=== PATIENT | female | born 1935 | race Caucasian/White ===

== ENCOUNTER 2019-03-04 11:09 | Observation (INO) | payer MEDICARE ==
[2019-03-04 12:19] LABS: #Basophils 0.1 thou/uL (0.0-0.2); #Eosinphils 0.2 thou/uL (0.0-0.7); #Monocytes 0.6 thou/uL (0.11-0.59); #Neutrophils 5.8 thou/uL (1.40-6.50); %Basophils 0.8 % (0.0-1.0); %Eosinophils 2.5 % (0.0-10.0); %Lymphocytes 13.3 % (21.0-51.0); %Monocytes 7.8 % (0.0-10.0); %Neutrophils 75.7 % (42.0-75.0); Hemoglobin 10.5 g/dL (12.0-16.0); Mean Corpuscular HGB CONC 31.9 g/dL (32.0-36.0); Mean Corpuscular Hemoglobin 28.6 pg (27.0-31.0); Mean Corpuscular Volume 89.8 fL (78.0-98.0); Mean Platelet Volume 7.8 fL (7.4-10.4); Platelet Count 162 thou/uL (130-400); RBC Distribution Width 14.1 % (11.5-14.5); Red Blood Cell (RBC) Count 3.68 mill/uL (4.20-5.40); White Blood Cell (WBC) Count 7.7 thou/uL (4.8-10.8)
[2019-03-04 12:26] LABS: Anion Gap 13 mmol/L (10-20); BUN (Urea Nitrogen) 23 mg/dL (9.8-20.1); Calc. Creatinine Clearance 0 mL/min (70-130); Calcium 9.2 mg/dL (7.8-10.44); Carbon Dioxide 22 mmol/L (23-31); Chloride 109 mmol/L (98-107); Estimated GFR-MDRD 61; Glucose 121 mg/dL (83-110); Potassium 4.5 mmol/L (3.5-5.1); Sodium 139 mmol/L (136-145)
[2019-03-04 12:49] LABS: CKMB 1.7 ng/mL (0-6.6)
[2019-03-04] MEDS ORDERED: cefTRIAXone\\ROCEPHIN 1 GM VIAL ONE (12:56)
[2019-03-04] MEDS ORDERED: Aspirin Chewable 81 MG TAB ONE (12:59)
[2019-03-04] MEDS ORDERED: Sodium Chloride 0.9% 100 ML ONE (12:59)
--- NOTE | 2019-03-04 13:22 | RAD ---
RADIOGRAPH CHEST 1 VIEW: Date: 03/04/19 Time: 1225 HOURS HISTORY: 83-year-old female with dyspnea. COMPARISON: 03/19/15. FINDINGS: The current study is somewhat limited because of slight underexposure, and body habitus. The left som g base is especially poorly visualized. There are diffusely prominent interstitial markings. In the p rior study, the lungs are overexposed. Therefore, comparison is difficult. No gross consolidation is visualized. The increased attenuation at the left base could be due to technique and overlying soft t issues. No pneumothorax. IMPRESSION: Prominent interstitial markings. Uncertain whether chronic or acute. Slightly favored chronic. JN [] POS: TPC
[2019-03-04 16:00] VITALS: BMI 35.9
[2019-03-04] MEDS ORDERED: Acetaminophen 325 MG TAB PO PRN (16:33)
[2019-03-04] MEDS ORDERED: Nitroglycerin 0.4 MG TAB (25 Tab Bottle) PO PRN (16:33)
[2019-03-04] MEDS ORDERED: Ondansetron ODT 4 MG TAB PO PRN (16:33)
--- NOTE | 2019-03-04 16:44 | PDOC.FPRHP ---
- History of Present Illness Chief Complaint: increased shortness of breath from baseline, dysuria History of Present Illness: Shannan Maldonado is an 83 year old F with a PMH of COPD on 4-5L NC at baseline and hx of colon CA s/p resection who was directly admitted from the [facility] ER after work up showing indeterminant trop of 0.057 and T wave inversions in inferior leads on 12 lead EKG. Patient endorses a 2 day history of dysuria and increased urinary frequency. She also states that she has had increased shortness of breath from her baseline over the last two days as well. She was admitted to [facility] about 3 weeks ago and treated for a respiratory infection. Since being discharged, she has been on 4-5 L NC. She denies any chest pain over the last couple days, denies any diaphoresis, n/v, fever, chills, abdominal or flank pain. She originally went to an urgent care today where the physician was concerned for sepsis (tachycardia and tachypnea, UA suggestive of UTI) so she was sent to the [facility] ER. She was given aspirin and IV rocephin in the [facility] ER. It is unclear if a urine Cx was done at either facilities prior to being sent here. ED Course: In the [facility] ER, she was given 1 g rocephin and aspirin - Allergies/Adverse Reactions Allergies Allergy/AdvReac Type Severity Reaction Status Date / Time No Known Allergies Allergy Unverified 03/04/19 15:48 - Home Medications Medication Instructions Recorded Confirmed Type Aspirin [Ecotrin Low Strength] 81 mg PO DAILY 03/04/19 03/04/19 History Esomeprazole Magnesium [Nexium 20 mg PO DAILY 03/04/19 03/04/19 History 24Hr] Ferrous Sulfate 325 mg PO DAILY 03/04/19 03/04/19 History Fexofenadine HCl [Kat Allergy] 180 mg PO DAILY 03/04/19 03/04/19 History Fluticasone/Salmeterol [Advair 1 inh IH BID 03/04/19 03/04/19 History Diskus 250/50] Ipratropium/Albuterol Sulfate 3 ml NEB TID 03/04/19 03/04/19 History [DuoNeb] Montelukast Sodium [Singulair] 10 mg PO DAILY 03/04/19 03/04/19 History Simvastatin [Zocor] 20 mg PO HS 03/04/19 03/04/19 History Venlafaxine HCl [Venlafaxine HCl 75 mg PO DAILY 03/04/19 03/04/19 History ER] Cefdinir [Omnicef] 300 mg PO BID #6 cap 03/05/19 Rx - History PMHx: COPD on 4-5 L NC at baseline, Hx of Colon CA s/p resection (no chemo or radiation) PSHx: Partial colectomy, hysterectomy, appendectomy, cholecystectomy FHx: hx of CAD Social: hx of tobacco use but quit smoking over 20 years ago, denies alcohol or drug use - Review of Systems General: denies: fever/chills, weight/appetite/sleep changes, night sweats Eyes: denies: eye pain, vision changes ENT: denies: nasal congestion, rhinorrhea Respiratory: reports: shortness of breath, exercise intolerance. denies: cough Cardiovascular: denies: chest pain, palpitation, edema, paroxysmal nocturnal dyspnea, orthopnea Gastrointestinal: denies: nausea, vomiting, diarrhea, constipation, abdominal pain Genitourinary: reports: dysuria, polyuria. denies: incontinence Skin: denies: rashes, lesions Musculoskeletal: denies: pain, tenderness, stiffness, swelling Neurological: denies: numbness, syncope, seizure - Vital signs BP: 146/74 HR: 95 RR: 22 Tmax: 98.2 Pox: 97% on 4 L Wt: 89 kg - Physical Exam Constitutional: NAD, awake, alert and oriented HEENT: normocephalic and atraumatic, PERRLA, EOMI, conjunctiva clear Neck: supple, FROM, no JVD Chest: no-tender to palpation Heart: RRR, normal S1/S2, no murmurs/rubs/gallops Lungs: CTAB, no respiratory distress, good air movement, no rales/rhonchi -Lungs: mild exp wheezing Abdomen: soft, non-tender, bowel sounds present Musculoskeletal: normal structure, normal tone, ROM grossly normal Neurological: no focal deficit, CN II-XII intact, normal sensation Skin: no rash/lesions, capillary refill <2 seconds Heme/Lymphatic: no unusual bruising or bleeding Psychiatric: normal mood and affect, good judgment and insight, intact recent and remote memory FMR H&P: Results - Labs Result Diagrams: 03/05/19 06:59 03/05/19 15:04 Lab results: WBC 7.7 thou/uL (4.8-10.8) 03/04/19 12:10 Hgb 10.5 g/dL (12.0-16.0) L 03/04/19 12:10 Hct 33.0 % (36.0-47.0) L 03/04/19 12:10 MCV 89.8 fL (78.0-98.0) 03/04/19 12:10 Plt Count 162 thou/uL (130-400) 03/04/19 12:10 Neutrophils % 75.7 % (42.0-75.0) H 03/04/19 12:10 Sodium 139 mmol/L (136-145) 03/04/19 12:10 Potassium 4.5 mmol/L (3.5-5.1) 03/04/19 12:10 Chloride 109 mmol/L (98-107) H 03/04/19 12:10 Carbon Dioxide 22 mmol/L (23-31) L 03/04/19 12:10 BUN 23 mg/dL (9.8-20.1) H 03/04/19 12:10 Creatinine 0.88 mg/dL (0.6-1.1) 03/04/19 12:10 Glucose 121 mg/dL (83-110) H 03/04/19 12:10 Lactic Acid 1.4 mmol/L (0.5-2.2) 03/04/19 12:10 Calcium 9.2 mg/dL (7.8-10.44) 03/04/19 12:10 CK-MB (CK-2) 1.7 ng/mL (0-6.6) 03/04/19 12:10 - EKG Interpretation EKG: EKG from [facility] read as Premature Atrial Contraction, Rate 93, T wave inversions in II, III, and aVF, Left [place] Deviation - Radiology Interpretation Chest x-ray Status: image reviewed by me, report reviewed by me (negative for acute process) FMR H&P: A/P - Problem List (1) Dyspnea Status: Acute Code(s): R06.00 - DYSPNEA, UNSPECIFIED (2) Ruled out for myocardial infarction Status: Acute Code(s): Z03.89 - ENCNTR FOR OBS FOR OTH SUSPECTED DISEASES AND COND RULED OUT (3) UTI (urinary tract infection) Status: Acute (4) COPD (chronic obstructive pulmonary disease) Status: Chronic - Plan PCP: Thomas 1) SPARKS r/o ACS - increased work of breathing, EKG showing T wave inversions in II, III, aVF, indeterminant trop 0.057 - HEART score of 6 - trend cardiac enzymes - stress test in the AM - tele/obs, cont cardiac monitoring - continue aspirin and statin - nitro prn - hx of neg stress tests in the past but no documented stress test in [facility]itech 2) UTI - concern for sepsis at outside facility due to tachycardia and tachypnea - vitals are stable, patient not tachycardic and has not received IVFs - UA done at outside facility concerning for UTI and pt has had dysuria and increased urinary freq - do not have access to UA results and unsure if culture was ordered at outside facility - continue treatment for UTI with rocephin, will likely transition to po tomorrow - urine cx ordered 3) COPD - continue home regimen - currently at baseline respiratory status, baseline is 4-5 L NC - duonebs prn CODE STATUS: DNI (pt wants compressions and meds, does not wish to be intubated) VTE PPx: Lovenox Diet: HH, NPO @ midnight Dispo: r/o ACS with trops and stress in AM, anticipate d/c home in less than two midnights FMR H&P: Upper Level - Plan Date/Time: 03/04/19 [id number] I, [], have evaluated this patient and agree with findings/plan as outlined by software intern resident. Pertinent changes/additions are listed here. Addendum - Attending - Attending Attestation Date/Time: 03/05/191922 I personally evaluated the patient and discussed the management with Dr. Logan yesterday evening. I agree with the History, Examination, Assessment and Plan documented above with any addition or exceptions noted below. Dr Alonso Conway is her outpatient design coordinator, and Dr. Martinez is her outpatient roller repairer.
[2019-03-04 16:48] LABS: Troponin I 0.061 ng/mL (< 0.028)
[2019-03-04] MEDS ORDERED: Atorvastatin Calcium 10 MG TAB PO SCH (21:00)
[2019-03-04 21:10] LABS: Troponin I 0.042 ng/mL (< 0.028)
--- NOTE | 2019-03-05 06:04 | PDOC.FM ---
- Subjective Subjective: Patient's main complaint is getting up all night to urinate. Burning sensation when urinating, but no pain. Otherwise, she is doing well this morning. VSS. 98 % sat on 4L O2 NC (baseline). Usually has humidifier w/ O2 because without it she reports nosebleeds. Feels sleepy. Reports no trouble breathing or chest pain today. No leg pain, abd pain. 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 She reports she sometimes gets swelling in her legs. Denies previous MIs/ history of heart problems. - Objective MAR Reviewed: Yes Vital Signs & Weight: Vital Signs (12 hours) Temp Pulse Resp BP Pulse Ox 03/05/19 04:55 98.2 F 88 20 127/63 98 03/05/19 04:29 94 L 03/04/19 19:19 97.8 F 78 24 H 122/59 L 94 L Weight Weight 88.269 kg I&O: 03/03/19 03/04/19 03/05/19 06:59 06:59 06:59 Intake Total 890 Output Total 2000 Balance -1110 Result Diagrams: 03/05/19 06:59 03/04/19 12:10 EKG Reviewed by me: Yes (T-wave inversion II, III, AVF) Radiology Reviewed by me: Yes (CXR: prominent interstitial markings, chronic favored over acute) Phys Exam - Physical Examination Constitutional: NAD HEENT: moist MMs, sclera anicteric Respiratory: no wheezing, clear to auscultation bilateral (upper airway sounds heard throughout the chest. Patient seems somewhat dyspneic with mild increased work of breathing) Cardiovascular: RRR (2/6 systolic murmur heard best over upper RSB) Musculoskeletal: no edema, pulses present Neurological: non-focal Psychiatric: normal affect, A&O x 3 Dx/Plan (1) Dyspnea Code(s): R06.00 - DYSPNEA, UNSPECIFIED Status: Acute (2) Ruled out for myocardial infarction Code(s): Z03.89 - ENCNTR FOR OBS FOR OTH SUSPECTED DISEASES AND COND RULED OUT Status: Acute (3) UTI (urinary tract infection) Status: Acute (4) COPD (chronic obstructive pulmonary disease) Status: Chronic - Plan Plan: 83-yo F w/ PMHx of COPD and colon cancer s/p resection, admitted for: 1. Dyspnea on exertion, ACS r/o - EKG: T wave inversions in II, III, aVF - HEART score = 6 - Troponins indeterminate x3 (0.057--> 0.061--> 0.042) - Stress test this morning - On telemetry - Continue aspirin and statin, nitro prn after stress test 2. UTI - Concern for sepsis at outside facility due to tachycardia and tachypnea. - VSS here. No IVFs given. - UA done at outside facility concerning for UTI. Per report, + nitrites - continue treatment for UTI: transition to PO cefdinir 300 mg PO BID for 3-7 days - Urine culture: pending 3. COPD - Continue home regimen - Baseline = 4-5 L NC - Duonebs prn VTE PPx: Lovenox Diet: HH, NPO @ midnight Addendum - Attending - Attending Attestation Date/Time: 03/05/19 1312 I personally evaluated the patient and discussed the management with Dr. Kirby. I agree with the History, Examination, Assessment and Plan documented above with any addition or exceptions noted below. The patient is getting a stress test today. If this is negative, she will likely be d/c on oral antibiotics for uti.
[2019-03-05 07:23] LABS: Hemoglobin 11.8 g/dL (12.0-16.0); Mean Corpuscular HGB CONC 32.4 g/dL (32.0-36.0); Mean Corpuscular Hemoglobin 28.8 pg (27.0-31.0); Mean Corpuscular Volume 88.9 fL (78.0-98.0); Red Blood Cell (RBC) Count 4.09 mill/uL (4.20-5.40); White Blood Cell (WBC) Count 7.5 thou/uL (4.8-10.8)
[2019-03-05 07:56] LABS: Burr Cells SLIGHT = 2-5 cells (100X) (0-1/hpf); Eosinophils 4 % (0-10); Lymphocytes 17 % (21-51); MDiff Complete? YES; Mean Platelet Volume 10.6 fL (7.4-10.4); Monocytes 6 % (0-10); Neutrophil 73 % (42-75); Platelet Count 235 thou/uL (130-400); Platelet Morphology Comment Appears Adequate; Polychromasia SLIGHT = 2-3 cells (100X) (0-2/hpf)
[2019-03-05] MEDS ORDERED: Enoxaparin Sodium 40 MG/0.4 ML SYRINGE SC SCH (09:00)
[2019-03-05] MEDS ORDERED: Aspirin 81 mg Enteric Coated Tablet PO SCH (09:00)
[2019-03-05] MEDS ORDERED: Montelukast Sodium 10 mg Tablet PO SCH (09:00)
[2019-03-05] MEDS ORDERED: Loratadine 10 MG TAB PO SCH (09:00)
[2019-03-05] MEDS ORDERED: Venlafaxine HCl XR 75 MG CAP PO SCH (09:00)
[2019-03-05] MEDS ORDERED: Ferrous Sulfate 325 MG TAB PO SCH (09:00)
[2019-03-05] MEDS ORDERED: Aspirin 325 mg Enteric Coated Tablet PO SCH (09:00)
[2019-03-05] MEDS ORDERED: Regadenoson 0.4 MG/5 ML SYRINGE ONE (10:17)
--- NOTE | 2019-03-05 14:17 | NM ---
CARDIAC SPECT: CLINICAL HISTORY: 83-year-old female with chest pain, dyspnea, and COPD. TECHNIQUE: A myocardial perfusion scan was performed using the single isotope one day protocol with technetium-9 9m sestamibi. 10 mCi were injected intravenously for the rest exam followed by 30 mCi for the stress exam. Pharmacologic stress with Lexiscan was monitored and interpreted by Padilla Grover NP. FINDINGS: There is a fixed defect in the inferior wall. No reversible defects are seen. GATED SPECT LVEF: 46%. WALL MOTION EXAM: Inferior wall hypokinesis. IMPRESSION: 1. Inferior wall scar. 2. No evidence of reversible ischemia. POS: NEW
[2019-03-05 15:34] VITALS: BP 134/63; TEMP 97.8
[2019-03-05 19:13] LABS: Chloride 106 mmol/L (98-107); Potassium 4.2 mmol/L (3.5-5.1); Sodium 137 mmol/L (136-145)
[2019-03-05 19:14] LABS: Calcium 9.5 mg/dL (7.8-10.44); Glucose 104 mg/dL (83-110)
[2019-03-05 19:16] LABS: Anion Gap 13 mmol/L (10-20); Carbon Dioxide 22 mmol/L (23-31)
[2019-03-05 19:18] LABS: BUN (Urea Nitrogen) 19 mg/dL (9.8-20.1); Calc. Creatinine Clearance 70 mL/min (70-130); Estimated GFR-MDRD 65
[2019-03-05] MEDS ORDERED: Cefdinir 300 MG CAP PO SCH (21:00)
--- NOTE | 2019-03-07 15:11 | DIS ---
DATE OF ADMISSION: 03/04/2019 DATE OF DISCHARGE: 03/05/2019 ADMITTING & DISCHARGE ATTENDING: Dr. Monet RESIDENT: Bee Pelaez MD CONSULTS: None. PROCEDURES: Chest x-ray, EKG, and cardiac stress test. PRIMARY DIAGNOSES: 1. Rule out for myocardial infarction 2/2 dyspnea on exertion. 2. Urinary tract infection. SECONDARY DIAGNOSES: 1. Chronic obstructive pulmonary disease. DISCHARGE MEDICATIONS: Cefdinir 300 mg p.o. b.i.d. Discontinued medications: None. HISTORY OF PRESENT ILLNESS AND HOSPITAL COURSE: Ms. Maldonado is an 83-year-old female with a past medical history of COPD and is on 4 to 5 L of oxygen via nasal cannula at baseline. Of note, she has a history of colon cancer, status post resection. She was admitted today from the [facility] Emergency Room after a workup showed indeterminate troponins and T-wave inversions on inferior leads on a 12-lead EKG. The patient initially presented for symptoms of dysuria and increased urinary frequency. However, she has also had increased shortness of breath especially with exertion. With regards to her dyspnea, the patient was admitted to [facility] about 3 weeks prior to this hospitalization and was treated for a respiratory infection. She had denied any chest pain over the last few days and did not claim to have diaphoresis, nausea, vomiting, fevers, or chills. At our facility, a standard rule out for MS was begun. Her chest x-ray showed prominent interstitial markings, but it was uncertain whether these were chronic or acute. Her nuclear stress test revealed left ventricular ejection fraction of 46%. It also showed an inferior wall scar. However, there was no evidence of reversible ischemia. With regards to her urinary symptoms, a urine culture was not obtained at the outside emergency room. She was given 1 g of Rocephin before being transferred to our facility. The patient was prescribed oral antibiotics for her UTI after urine culture at our facility showed less than 10,000 colony units of E coli. The patient was stable the day following admission and felt like she was back to normal. She was discharged with oral antibiotics. DISPOSITION: Stable. DISCHARGE INSTRUCTIONS: 1. Location: Home. 2. Diet: Heart healthy. 3. Activity: As tolerated. 4. Followup: Follow up with Dr. Guzman, PCP, within 1 week. Bee Pelaez MD PGY-1 Job ID: [id number] LINDA
== END 2019-03-05 17:19 | disposition home or self-care (01) ==
LOC: SCSER 11:09 → 2SW 15:34
PROVIDERS: ADMIT Family Medicine; ATTEND Family Medicine
DX: R06.00 Dyspnea, unspecified (principal); N39.0 Urinary tract infection, site not specified; J44.9 Chronic obstructive pulmonary disease, unspecified; Z85.038 Personal history of other malignant neoplasm of large intestine; Z87.891 Personal history of nicotine dependence; Z99.81 Dependence on supplemental oxygen; Z79.82 Long term (current) use of aspirin; Z79.51 Long term (current) use of inhaled steroids; Z79.899 Other long term (current) drug therapy
CPT/HCPCS: 71045; 78452; 80048 ×2; 82553; 83605; 83735; 84443; 84484 ×2; 85007; 85025; 85027; 87086; 93005; 93017; 94640 ×2; 94760; 96365; 96372; 97139; 99285; A9500; G0378 ×2; 36415; 93010; J0696; J1650; J2785; J3490; J7620

== ENCOUNTER 2020-08-15 19:30 | Inpatient (IN) | payer MEDICARE ==
--- NOTE | 2020-08-15 20:29 | PDOC.FPRHP ---
- History of Present Illness Chief Complaint: SOB History of Present Illness: Pt is an 85yo female with hx of COPD, colon cancer in remission, CAD s/p stent who presents with worsening SOB. Pt is on 4L oxygen at baseline. For the past week she has had increasing SOB and SPARKS. She was not able to complete ADLs due to SPARKS. She had to increase her home oxygen to 6L. Per EMS her O2sat was 85% at home. She was transferred to our hospital from an outside ED. At outside ED found to have elevated D dimer. CTA chest was negative for PE but showed large L pleural effusion and possible PNA, along with nodule in RLL suspicious for malignancy. Also found to have hemoglobin of 6.4 and given 1u pRBC. Admits some associated dizziness. Denies CP, palpitations, fever, N/V/D, hematemesis, hematuria. Positive for melena ED Course: rocephin, albuterol, azithromycin, 1u pRBC - Allergies/Adverse Reactions Allergies Allergy/AdvReac Type Severity Reaction Status Date / Time No Known Allergies Allergy Verified 05/01/20 02:40 - Home Medications Medication Instructions Recorded Confirmed Type Aspirin [Ecotrin Low Strength] 81 mg PO DAILY 03/04/19 08/16/20 History Esomeprazole Magnesium [Nexium 20 mg PO DAILY 03/04/19 08/16/20 History 24Hr] Ferrous Sulfate 325 mg PO DAILY 03/04/19 08/16/20 History Fexofenadine HCl [Kat Allergy] 180 mg PO DAILY 03/04/19 08/16/20 History Fluticasone/Salmeterol [Advair 1 inh IH BID 03/04/19 08/16/20 History Diskus 250/50] Ipratropium/Albuterol Sulfate 3 ml NEB TID 03/04/19 08/16/20 History [DuoNeb] Montelukast Sodium [Singulair] 10 mg PO DAILY 03/04/19 08/16/20 History Simvastatin [Zocor] 20 mg PO HS 03/04/19 08/16/20 History Venlafaxine HCl [Venlafaxine HCl 75 mg PO DAILY 03/04/19 08/16/20 History ER] Carvedilol [Coreg] 3.125 mg PO BID-WM 30 Days #60 tab 02/01/20 08/16/20 Rx Furosemide [Lasix] 40 mg PO BID #60 tablet 05/03/20 08/16/20 Rx Ticagrelor [Brilinta] 90 mg PO BID #60 tab 05/03/20 08/16/20 Rx predniSONE 20 mg PO QAM-WM #7 tab 05/03/20 08/16/20 Rx - History PMHx: COPD, colon cancer in remission, CAD PSHx: pacemaker, cardiac stent, colectomy, appendectomy, cholecystectomy FHx: non-contributory Social: former smoker, rare alcohol use, denies drug use. Lives at home alone - Review of Systems General: denies: fever/chills, weight/appetite/sleep changes Eyes: denies: vision changes ENT: denies: nasal congestion, rhinorrhea Respiratory: reports: cough (chronic), shortness of breath. denies: congestion Cardiovascular: denies: chest pain, palpitation Gastrointestinal: denies: nausea, vomiting, diarrhea Genitourinary: denies: dysuria Skin: denies: rashes Musculoskeletal: denies: pain Neurological: reports: other (dizziness) - Vital signs BP:131/67, HR 80. RR 25, O2 sat 95% on 4L, Tmax 98F, Wt 90 kg - Physical Exam Constitutional: awake, alert and oriented -Constitutional: had to take frequent breaks during conversation to catch her breath HEENT: normocephalic and atraumatic, grossly normal vision, grossly normal hearing Neck: supple Heart: RRR, pulses present -Heart: distant heart sounds Lungs: no wheezing -Lungs: decreased breath sounds at L lung base Abdomen: soft, non-tender -Abdomen: hernia present- reducible Musculoskeletal: normal structure, normal tone Neurological: no focal deficit Skin: no rash/lesions Heme/Lymphatic: no unusual bruising or bleeding Psychiatric: normal mood and affect, intact recent and remote memory FMR H&P: Results - Labs Result Diagrams: 08/16/20 05:22 08/16/20 05:22 FMR H&P: A/P - Plan Pt is an 85yo female with hx of COPD who presents with worsening SOB. #Symptomatic anemia -Hb 6.4 at outside ED, given 1u pRBC, Hb increased to 8.6 -hx of MAYITO on oral iron replacement -etiology possible GI bleed vs anemia of chronic disease 2/2 malignancy -Will recheck CBC and transfuse as needed with goal Hb>8 -FOBT not performed as pt on iron -Consider GI consult in AM #Left pleural effusion -CTA: No PE, large left pleural effusion, RLL nodule suspicious for malignancy -consider thoracentesis in am for further evaluation -s/p rocephin & azithromycin in ED, pending procal #Acute on chronic respiratory failure likely 2/2 large pleural effusion -EMS reported O2 85% on home oxygen, increased to 6L -currently satting 95% on 4L which is home regimen -thoracentesis as above #Leukocytosis -WBC 18.0, no bands, no fever -Suspect reactive, clinically monitor, repeat in AM -s/p rocephin & azithro, will obtain procal #CKD3 -near baseline, monitor in AM #CAD s/p stents -continue home meds Code: DNI PCP: Adan DVT ppx: held due to possible bleed GI ppx: protonix IV Dispo: Admit to inpatient medical, possible thoracentesis in am, LOS > 48hrs FMR H&P: Upper Level - Plan Date/Time: 08/15/202028 I, [Heide Watson], have evaluated this patient and agree with findings/plan as outlined by international freight forwarder resident. Pertinent changes/additions are listed here. Ms. Talbert is an 85 yo F with chronic respiratory failure on 4L N.C. from COPD who presents as transfer for worsening SOB. Has been happening this past week and has required intermittent inc of her home O2 to 6L. She is a former smoker, quit 20 years ago. In the ER she was found to be anemic with Hb 6.4, given 1 PRBC. Ddimer was elevated w/ CTA negative for PE but showing large left pleural effusion with RLL nodule and mediastinal adenopathy. Of note she has a remote history of colon CA with resection in which she states she is in remission. She also endorses dark, tarry stool that she has had since being on iron. No other bleeding elsewhere. No prior hx of GIB. She states feeling a little un comfortable from being SOB but denies chest pain, irregular heart beat. #Symptomatic anemia -2/2 GIB vs. anemia of chronic disease (malignancy?) -s/p 1PRBC, will recheck H/H, goal >8 due to cardiac hx -H/H improved from 6.4 to 8.6 on recheck -Will repeat in 4 hours, clinically monitor for signs of GIB, empirically start IV protonix BID. FOBT not performed as pt on iron. -Consider GI consult in AM, Repeat CBC with AM labs #Left pleural effusion -CTA: No PE, large left pleural effusion with mediastinal adenopathy, 1cm RLL pulmonary nodule -Plan for AM diagnostic and therapeutic thoracentesis to further w/u -s/p rocephin & azithromycin, low suspicion for bacterial cause but will obtian procal #Hypoxic episode -88% in outside ER, no patient on 95% on 4L (baseline O2) -ABG wnl -Dyspneic episodes at home likely from anemia vs. pleural effusion #Leukocytosis -WBC 18.0, no bands, no fever -Suspect reactive, clinically monitor, repeat in AM -s/p rocephin & azithro, will obtain procal #Chronic respiratory failure 2/2 COPD -requiring 4L at baseline -Continue home meds for COPD -Goal O2 88-92% #CKD3 -near baseline, monitor in AM #SD s/p stent -Stable, monitor #CAD -MD aware #Hx of PM -MD aware dvt ppx: hold gi ppx: IV protonix code: DNI pcp: Dr. Montanez Addendum - Attending - Attending Attestation Date/Time: 08/16/20 0121 I personally evaluated the patient and discussed the management with Dr. Angela on 08/15/2020 I agree with the History, Examination, Assessment and Plan documented above with any addition or exceptions noted below- 85yo female with hx of COPD, colon cancer in remission, CAD s/p stent, h/o aortic stenosis s/p TAVR who presents with worsening SOB. Pt is on 4L oxygen at baseline. For the past week she has had increasing SOB and SPARKS. She was not able to complete ADLs due to SPARKS. She had to increase her home oxygen to 6L.Per EMS her O2sat was 85% at home. She was transferred to our hospital from an outside ED. Admits some associated dizziness. Denies CP, palpitations, fever, N/V/D, hematemesis, hematuria. Positive for melena. PMH/PSH/Meds/SH reviewed and agree with resident's documentation. Afebrile BP 131/67 P80 95% on 4L Exam repeated by me and agree with resident's findings. Labs: WBC= 15.6 ->18.0, H/H=6.4/21.6->8.6/26.7, Xp=391, K=4.0, Hf=781, CO2=26, BUN/Cr=40/1.08, Uwtl=735, lactic acid=2.3->1.1, EKO=926, CTA- large left pleural effusion; mediastinal LAD, 1 cm RLL nodule suspicious for malignancy. A/P: 1) Acute hypoxic resp failure secondary to large pleural effusion- O2 sats currently stable; continue oxygen and continue monitoring, 2) Large pleural effusion - will plan on thoracentesis in AM and fluid studies. 3) Pulmonary nodule- consider pulmonary consult.
[2020-08-15 21:04] LABS: #Eosinphils 0.1 thou/uL (0.0-0.7); #Lymphocytes 0.9 thou/uL (1.20-3.40); #Monocytes 1.6 thou/uL (0.11-0.59); #Neutrophils 15.5 thou/uL (1.40-6.50); %Eosinophils 0.4 % (0.0-10.0); %Monocytes 8.6 % (0.0-10.0); Hemoglobin 8.6 g/dL (12.0-16.0); Mean Corpuscular HGB CONC 32.2 g/dL (32.0-36.0); Mean Corpuscular Hemoglobin 29.6 pg (27.0-31.0); Mean Corpuscular Volume 91.8 fL (78.0-98.0); Mean Platelet Volume 8.6 fL (7.4-10.4); Platelet Count 286 thou/uL (130-400); Red Blood Cell (RBC) Count 2.91 mill/uL (4.20-5.40)
[2020-08-15] MEDS ORDERED: Ondansetron PF 4 MG/2 ML Vial IVP PRN (22:11)
[2020-08-15] MEDS ORDERED: Ondansetron ODT 4 MG TAB PO PRN (22:11)
[2020-08-15] MEDS ORDERED: Sodium Chloride 0.9% (PF) 10 ML VIAL FS PRN (22:30)
[2020-08-15] MEDS ORDERED: Pantoprazole 40 MG VIAL IVP SCH (22:30)
[2020-08-16 01:32] LABS: Hemoglobin 8.1 g/dL (12.0-16.0)
[2020-08-16 04:46] VITALS: BMI 31.1
[2020-08-16 05:44] LABS: #Eosinphils 0.1 thou/uL (0.0-0.7); #Lymphocytes 0.8 thou/uL (1.20-3.40); #Monocytes 1.5 thou/uL (0.11-0.59); #Neutrophils 12.3 thou/uL (1.40-6.50); %Basophils 0.1 % (0.0-1.0); %Eosinophils 0.5 % (0.0-10.0); %Lymphocytes 5.7 % (21.0-51.0); %Monocytes 9.9 % (0.0-10.0); %Neutrophils 83.8 % (42.0-75.0); Mean Corpuscular HGB CONC 32.2 g/dL (32.0-36.0); Mean Corpuscular Hemoglobin 29.4 pg (27.0-31.0); Mean Corpuscular Volume 91.4 fL (78.0-98.0); Mean Platelet Volume 8.7 fL (7.4-10.4); Platelet Count 275 thou/uL (130-400); Red Blood Cell (RBC) Count 2.72 mill/uL (4.20-5.40); White Blood Cell (WBC) Count 14.7 thou/uL (4.8-10.8)
[2020-08-16 06:07] LABS: Anion Gap 14 mmol/L (10-20); BUN (Urea Nitrogen) 35 mg/dL (9.8-20.1); Calc. Creatinine Clearance 49 mL/min (70-130); Calcium 8.8 mg/dL (7.8-10.44); Carbon Dioxide 26 mmol/L (23-31); Chloride 104 mmol/L (98-107); Glucose 137 mg/dL (83-110); Potassium 4.1 mmol/L (3.5-5.1); Sodium 140 mmol/L (136-145)
--- NOTE | 2020-08-16 06:16 | PDOC.FM ---
- Subjective Subjective: Patient reports difficulty breathing today. Denies CP, N/V. Colon cancer dx and tx was >10 yrs ago per patient. - Objective MAR Reviewed: Yes Vital Signs & Weight: Vital Signs (12 hours) Temp Pulse Resp BP Pulse Ox 08/16/20 04:29 98.2 F 86 16 155/51 H 92 L 08/16/20 00:04 97.8 F 84 16 153/67 H 95 08/15/20 23:15 97.7 F 82 24 H 150/53 H 93 L Weight Weight 77.1 kg Result Diagrams: 08/16/20 05:22 08/16/20 05:22 Phys Exam - Physical Examination Constitutional: NAD Respiratory: no wheezing, no rales, no rhonchi Decreased breath sounds on LLL Cardiovascular: RRR, no significant murmur, no rub Gastrointestinal: soft, non-tender, no distention, positive bowel sounds Musculoskeletal: no edema, pulses present Dx/Plan - Plan Plan: Pt is an 85yo female with hx of COPD who presents with worsening SOB. Symptomatic anemia - Hb 6.4 at outside ED, given 1u pRBC, Hb increased to 8.6 - hx of MAYITO on oral iron replacement - etiology possible GI bleed vs anemia of chronic disease 2/2 malignancy - Will recheck CBC and transfuse as needed with goal Hb>8 - FOBT not performed as pt on iron - Consider GI consult if worsening anemia Left pleural effusion - CTA: No PE, large left pleural effusion, RLL nodule suspicious for malignancy - consider thoracentesis in am for further evaluation - s/p rocephin & azithromycin in ED, procal negative - Plan for thoracentesis with fluid studies Acute on chronic respiratory failure 2/2 COPD - EMS reported O2 85% on home oxygen, increased to 6L - currently satting well on 5L O2 with increased air hunger Leukocytosis - WBC 18.0, no bands, no fever - Suspect reactive, clinically monitor, repeat in AM - s/p rocephin & azithro, will obtain procal CKD3 - near baseline, monitor in AM CAD s/p stents - Hold anticoagulants this AM given concern for possible GI bleed Code: DNI PCP: Thomas/Tarik DVT ppx: held due to possible bleed GI ppx: protonix IV Dispo: Admit to inpatient medical, possible thoracentesis in am, LOS > 48hrs Addendum - Attending - Attending Attestation Date/Time: 08/16/20 1596 I personally evaluated the patient and discussed the management with Dr. Adhikari I agree with the History, Examination, Assessment and Plan documented above with any addition or exceptions noted below. 85 yo female admitted for acute hypoxic respiratory failure due to severe Left plueral effusion with hx of underlying colon cancer Patient in distress this morning. Continue to up titrate O2 support. IR consulted for dx and therapeutic thorocentesis. No need for antibx at this time. No s/sx of infection. Continue to monitor. Will involve other specialist as indicated. [place]
[2020-08-16] MEDS: Acetaminophen 325 MG TAB PO PRN ×4 (06:20→21:51)
[2020-08-16] MEDS: Pantoprazole 40 MG VIAL IVP SCH ×2 (09:12→20:44)
[2020-08-16] MEDS: Ferrous Sulfate 325 MG TAB PO SCH (09:13)
[2020-08-16] MEDS: Furosemide 40 MG TAB PO SCH ×2 (09:13→20:44)
[2020-08-16] MEDS: Loratadine 10 MG TAB PO SCH (09:13)
[2020-08-16] MEDS ORDERED: Carvedilol 3.125 MG TAB PO SCH (09:15)
[2020-08-16] MEDS ORDERED: predniSONE 20 MG TAB PO SCH (09:15)
[2020-08-16 12:11] LABS: INR-International Normal Ratio 1.3; PTT 33.7 sec (22.9-36.1)
--- NOTE | 2020-08-16 12:17 | PQF ---
CLINICAL DOCUMENTATION CLARIFICATION FORM: Dear Dr. WAYNE EID Date: 08-16-19 Please exercise your independent, professional judgment in responding to the clarification form. Clinical indicators are provided on the bottom of this form for your review. Please check appropriate box(es) to clarify if the following diagnosis has been ruled in our ruled out: PNEUMONIA [ ] Ruled in diagnosis [ ] Continue to treat [ ] Resolved [ X ] Ruled out diagnosis [ ] Other diagnosis [ ] Unable to determine In addition, please specify: Present on Admission (POA): [ ] Yes [ X ] No [ ] Unable to determine For continuity of documentation, please document condition throughout progress notes and discharge summary. Thank You. To be completed by CDI/Coding staff for physician review: CLINICAL INDICATORS - SIGNS / SYMPTOMS / LABS / RESULTS AND LOCATION IN MR: ER DX 08-15-20: DYSPNEA, ANEMIA, HYPOXIA, PLEURAL EFFUSION, PNEUMONIA H&P: 08-15-20: CTA CHEST WAS NEGATIVE FOR PE BUT SHOWED LARGE L PLEURAL EFFUSION AND POSSIBLE PNEUMONIA, ALONG WITH NODULE IN RLL SUSPICIOUS FOR MALIGNANCY. H&P 08-15-20: SYMPTOMATIC ANEMIA, L PLEURAL EFFUSION, ACUTE ON CHRONIC RESPIRATORY FAILURE LIKELY 2/2 LARGE PLEURAL EFFUSION, LEUKOCYTOSIS, CKD3, CAD WBC: 08-15-20: 18.0, 08-16-20: 14.7 NEUTROPHILS: 08-15-20: 86% 08-16-20: 83.8% RISK FACTORS / RESULTS AND LOCATION IN MR: H&P 08-15-20: SYMPTOMATIC ANEMIA, L PLEURAL EFFUSION, ACUTE ON CHRONIC RESPIRATORY FAILURE LIKELY 2/2 LARGE PLEURAL EFFUSION, LEUKOCYTOSIS, CKD3, CAD TREATMENTS / RESULTS AND LOCATION IN MR: ER NOTES 08-15-20: PATIENT CONTINUES TO REQUIRE INCREASED OXYGEN SUPPORT FROM HER BASELINE, WELL HAS SIGNS OF PNEUMONIA WITH PLEURAL EFFUSION. SHE WILL BE ADMITTED TO THE FAMILY MEDICINE TEAM FOR CONTINUED ANTIBIOTICS AND FURTHER CARE AND EVALUATION. MAR: 08-16-20: BOBBCHE, PREDNISONE CDS Signature: Ashley Roberta Phone #: [phone] Date: 08-16-20 This is a permanent part of the Medical Record [facility]
[2020-08-16] MEDS ORDERED: Sodium Bicarbonate 2.5 MEQ/5 ML VIAL ONE (13:32)
[2020-08-16] MEDS ORDERED: Lidocaine 1% PF 5 ML VIAL ONE (13:32)
--- NOTE | 2020-08-16 14:38 | RAD ---
RADIOGRAPH CHEST 1 VIEW: DATE: 08/16/2020 TIME: 2:21 PM HISTORY: 85-year-old female status post thoracentesis for left pleural effusion COMPARISON: 08/15/2020 FINDINGS: The patient was very rotated to the right, making it somewhat difficult to compare. The previously demonstrated moderate size left pleural effusion appears either slightly smaller or un changed now. It totally opacifies and obscures the lower half of the left lung vazquez. Prominent interstitial markings in the rest of the lungs. No pulmonary vascular engorgement. No consolidation in right lung. No pneumothorax. Pacemaker with left-sided generator. IMPRESSION: 1) no pneumothorax. 2) moderate to large left pleural effusion
--- NOTE | 2020-08-16 15:08 | ULT ---
Left thoracentesis sonographic guided HISTORY: Symptomatic left pleural fluid. FINDINGS: After explaining the procedure and answering all questions, sonographic survey confirmed a large amount of left pleural fluid. Sterile technique, buffered local anesthesia, sonographic guidance, and a left posterior intercostal approach were used to carefully advance a 19-gauge Yueh needle and catheter into the left pleural fluid. Catheter was left to drain a total volume of 1.0 L bloody liquid. Some foam was present within the li quid. Catheter was removed with moderate amount of fluid remaining. Patient tolerated the procedure well an d was returned in unchanged condition. IMPRESSION : Technically successful sonographic guided left thoracentesis. 1.0 L bloody liquid with moderate resid ual.
[2020-08-16 15:44] LABS: Hemoglobin 8.4 g/dL (12.0-16.0); Platelet Count 296 thou/uL (130-400)
[2020-08-16] MEDS: Carvedilol 3.125 MG TAB PO SCH (16:45)
[2020-08-16] MEDS: Mometasone 200 MCG/Formoterol 5 MCG 120 PUFF INHALER INH SCH (18:33)
[2020-08-16 19:53] LABS: Pleural Fluid, Amylase Less than 30 U/L (Not Available); Pleural Fluid, Glucose 103 mg/dL; Pleural Fluid, LDH 818 U/L (Not Available); Pleural Fluid, Protein 4.3 g/dL
[2020-08-16 20:16] LABS: RBC Count-Automated (BF) 783764 /cu.mm; WBC/Nucleated-Auto (BF) 2802 uL
[2020-08-16] MEDS: Atorvastatin Calcium 10 MG TAB PO SCH (20:44)
[2020-08-16] MEDS: Montelukast Sodium 10 mg Tablet PO SCH (20:44)
[2020-08-16 20:47] LABS: BF Color Red; Body Fluid Source Thoracentesis Fluid; Clarity Cloudy/Turbid (Clear); Tube # EDTA
[2020-08-16 20:48] LABS: BF Segmented Neutrophils 80 %; Cell Count Non Hematic 9 %; Eosinophils 3 %; Lymphocytes 8 %
[2020-08-17 05:42] LABS: #Eosinphils 0.1 thou/uL (0.0-0.7); #Lymphocytes 1.3 thou/uL (1.20-3.40); #Monocytes 1.9 thou/uL (0.11-0.59); #Neutrophils 15.4 thou/uL (1.40-6.50); %Basophils 0.2 % (0.0-1.0); %Eosinophils 0.6 % (0.0-10.0); %Lymphocytes 6.7 % (21.0-51.0); %Neutrophils 82.5 % (42.0-75.0); Hemoglobin 8.3 g/dL (12.0-16.0); Mean Corpuscular HGB CONC 30.9 g/dL (32.0-36.0); Mean Corpuscular Hemoglobin 28.9 pg (27.0-31.0); Mean Corpuscular Volume 93.3 fL (78.0-98.0); Platelet Count 297 thou/uL (130-400); RBC Distribution Width 13.1 % (11.5-14.5); Red Blood Cell (RBC) Count 2.88 mill/uL (4.20-5.40); White Blood Cell (WBC) Count 18.7 thou/uL (4.8-10.8)
--- NOTE | 2020-08-17 05:55 | PDOC.FM ---
- Subjective Subjective: Patient feeling well this AM. Reports she is breathing comfortable on home O2 level. Has some soreness at site of thoracentesis worse with movement. Denies N/V. - Objective MAR Reviewed: Yes Vital Signs & Weight: Vital Signs (12 hours) Temp Pulse Resp BP Pulse Ox 08/17/20 04:35 98.8 F 96 19 131/57 L 92 L 08/17/20 00:02 98.0 F 94 19 133/43 L 92 L 08/16/20 20:44 94 L 08/16/20 19:09 97.5 F L 87 19 94 L 08/16/20 18:23 96 16 Weight Weight 77.1 kg I&O: 08/15/20 08/16/20 08/17/20 06:59 06:59 06:59 Intake Total 1325 Output Total 1440 Balance -115 Result Diagrams: 08/17/20 05:21 08/16/20 05:22 Phys Exam - Physical Examination Constitutional: NAD Respiratory: no wheezing Decreased breath sounds in LLL Cardiovascular: RRR, no significant murmur, no rub Gastrointestinal: soft, non-tender, no distention, positive bowel sounds Musculoskeletal: no edema Dx/Plan - Plan Plan: Pt is an 85yo female with hx of COPD who presents with worsening SOB. Symptomatic anemia - Hb 6.4 at outside ED, given 1u pRBC, Hb increased to 8.6 - hx of MAYITO on oral iron replacement - etiology possible GI bleed vs anemia of chronic disease 2/2 malignancy - Will recheck CBC and transfuse as needed with goal Hb>8 - FOBT not performed as pt on iron - Consider GI consult if worsening anemia Left pleural effusion - CTA: No PE, large left pleural effusion, RLL nodule suspicious for malignancy - s/p rocephin & azithromycin in ED, procal negative - Working up fluid studies, waiting on path - Has op artificial inseminator Acute on chronic respiratory failure 2/2 COPD - EMS reported O2 85% on home oxygen, increased to 6L - currently satting well on 2L O2 Leukocytosis - WBC 18.0, no bands, no fever - Suspect reactive, clinically monitor, repeat in AM - s/p rocephin & azithro, will obtain procal CKD3 - near baseline, monitor in AM CAD s/p stents - Hold anticoagulants this AM given concern for possible GI bleed Code: DNI PCP: Adan DVT ppx: held due to possible bleed GI ppx: protonix IV Dispo: Admit to inpatient medical, possible DC today with Outpatient pulm follow up and good home support. Addendum - Attending - Attending Attestation Date/Time: 08/17/20 1522 I personally evaluated the patient and discussed the management with Dr. Adhikari I agree with the History, Examination, Assessment and Plan documented above with any addition or exceptions noted below. 85 yo female admitted for acute hypoxic respiratory failure on chronic re spiratory due to severe Left plueral effusion with hx of underlying colon cancer Breathing and dyspnea improved. Repeat CXR stable with slight improvement. Path still pending but likely malignancy. Onc consulted. Ok to dc but family not available today. [place]
[2020-08-17] MEDS: Mometasone 200 MCG/Formoterol 5 MCG 120 PUFF INHALER INH SCH ×2 (07:53→19:16)
[2020-08-17] MEDS: Acetaminophen 325 MG TAB PO PRN ×2 (09:13→14:44)
[2020-08-17] MEDS: Furosemide 40 MG TAB PO SCH ×2 (09:15→21:17)
[2020-08-17] MEDS: Loratadine 10 MG TAB PO SCH (09:15)
[2020-08-17] MEDS: predniSONE 20 MG TAB PO SCH (09:15)
--- NOTE | 2020-08-17 10:37 | RAD ---
EXAM: Chest PA and lateral: HISTORY: Status post thoracentesis COMPARISON: 08/16/2020 FINDINGS: Stable left-sided transvenous pacemaker. Stable stent projecting over the cardiac silhouette. Heart: Obscuration left heart border. There is evidence of cardiomegaly. There is evidence of a coron van artery stent. Aorta: Atherosclerotic Pulmonary vessels: Normal Costophrenic angles: Persistent pleural effusion on the left hemithorax. Lungs: Persistent consolidation of the left lower lobe. Pneumothorax: No pneumothorax Osseous structures: No osseous abnormalities IMPRESSION: 1. No pneumothorax. 2. Persistent pleural and parenchymal changes left hemithorax. The degree of pleural fluid has not si gnificantly decreased.
[2020-08-17] MEDS: Carvedilol 3.125 MG TAB PO SCH ×2 (11:43→17:55)
[2020-08-17] MEDS: Ferrous Sulfate 325 MG TAB PO SCH (13:40)
[2020-08-17] MEDS: Montelukast Sodium 10 mg Tablet PO SCH (21:17)
[2020-08-17] MEDS: Atorvastatin Calcium 10 MG TAB PO SCH (21:17)
--- NOTE | 2020-08-18 06:00 | PDOC.FM ---
- Subjective Subjective: Patient resting comfortably in bed this AM. Has no acute events overnight per nursing. No acute complaints. Patient is ready to go home. - Objective MAR Reviewed: Yes Vital Signs & Weight: Vital Signs (12 hours) Temp Pulse Resp BP Pulse Ox 08/18/20 04:50 98.3 F 94 19 134/56 L 90 L 08/17/20 23:20 92 L 08/17/20 23:11 99.1 F 98 19 161/66 H 08/17/20 21:17 92 L 08/17/20 19:42 97.7 F 90 17 124/63 92 L 08/17/20 19:07 85 22 H 95 Weight Weight 77.1 kg I&O: 08/16/20 08/17/20 08/18/20 06:59 06:59 06:59 Intake Total 1325 Output Total 1440 Balance -115 Result Diagrams: 08/17/20 05:21 08/16/20 05:22 Phys Exam - Physical Examination Constitutional: NAD HEENT: moist MMs Neck: supple Respiratory: no wheezing, no rales on home O2 of 4L Cardiovascular: RRR, no significant murmur Gastrointestinal: soft, non-tender Musculoskeletal: no edema, pulses present Neurological: non-focal, moves all 4 limbs Psychiatric: normal affect, A&O x 3 Skin: no rash, normal turgor Dx/Plan - Plan Plan: Plan: Pt is an 85yo female with hx of COPD who presents with worsening SOB. Symptomatic anemia - Hb 6.4 at outside ED, given 1u pRBC, Hb increased to 8.6 - hx of MAYITO on oral iron replacement - etiology possible GI bleed vs anemia of chronic disease 2/2 malignancy - Will recheck CBC and transfuse as needed with goal Hb>8 - FOBT not performed as pt on iron Left pleural effusion - CTA: No PE, large left pleural effusion, RLL nodule suspicious for malignancy - s/p rocephin & azithromycin in ED, procal negative - Working up fluid studies, waiting on path - Has out patient webfocus developer, DR Nguyen, instructed to follow up Acute on chronic respiratory failure 2/2 COPD - EMS reported O2 85% on home oxygen, increased to 6L - currently satting well on 4L O2 which is home O2: goal 88-92% Leukocytosis - WBC 18.0, no bands, no fever - Suspect reactive, clinically monitor, repeat in AM - s/p rocephin & azithro - Procal .15, negative CKD3 - near baseline, monitor in AM CAD s/p stents - Hold Brillinta and ASA given concern for possible GI bleed -will resume ASA on discharge Code: DNI PCP: Adan DVT ppx: held due to possible bleed GI ppx: protonix IV Dispo: discharge today Addendum - Attending - Attending Attestation Date/Time: 08/18/20 0195 I personally evaluated the patient and discussed the management with Dr. Bella I agree with the History, Examination, Assessment and Plan documented above with any addition or exceptions noted below. Stable. At baseline O2 requirement. No acute changes. Ok to d/c to home. Will follow up with Onc outpatient. Path still pending. [place]
[2020-08-18 07:42] VITALS: BP 134/52; TEMP 98.4
[2020-08-18] MEDS: Mometasone 200 MCG/Formoterol 5 MCG 120 PUFF INHALER INH SCH (07:44)
[2020-08-18] MEDS: Acetaminophen 325 MG TAB PO PRN (09:14)
[2020-08-18] MEDS: Furosemide 40 MG TAB PO SCH (09:15)
[2020-08-18] MEDS: predniSONE 20 MG TAB PO SCH (09:15)
[2020-08-18] MEDS: Carvedilol 3.125 MG TAB PO SCH (09:15)
[2020-08-18] MEDS: Ferrous Sulfate 325 MG TAB PO SCH (09:15)
[2020-08-18] MEDS: Loratadine 10 MG TAB PO SCH (09:15)
--- NOTE | 2020-08-22 01:25 | DIS ---
DATE OF ADMISSION: 08/15/2020 DATE OF DISCHARGE: 08/18/2020 ADMITTING ATTENDING: Allie Wiley MD. DISCHARGE ATTENDING: Dr. Lee. CONSULTATIONS: None. PROCEDURES: The patient had an ultrasound-guided thoracentesis on 08/16/2020, in which 1 L of frankly bloody fluid was drained from the left lung. PRIMARY DIAGNOSIS: Acute hypoxic respiratory failure, likely due to pleural effusion. SECONDARY DIAGNOSES: Symptomatic anemia, left pleural effusion, [id number] respiratory failure, leukocytosis, chronic kidney disease, coronary artery disease. DISCHARGE MEDICATIONS: 1. Tylenol 650 mg p.o. q.4 hours p.r.n. 2. Aspirin 81 mg p.o. daily. 3. Carvedilol 3.125 mg p.o. b.i.d. 4. Nexium 20 mg p.o. daily. 5. Ferrous sulfate 325 mg p.o. daily. 6. Kat 180 mg p.o. daily. 7. Advair 1 puff b.i.d. 8. Lasix 40 mg p.o. b.i.d. 9. DuoNeb 3 mL nebs t.i.d.. 10. Singulair 10 mg p.o. daily. 11. Prednisone 20 mg p.o. q.a.m. 12. Simvastatin 20 mg p.o. at bedtime. 13. Venlafaxine 75 mg p.o. daily. DISCONTINUED MEDICATIONS: Brilinta was held upon discharge given frankly bloody fluid drained from pleural effusion. HISTORY OF PRESENT ILLNESS/HOSPITAL COURSE: The patient is an 85-year-old female with a history of COPD and chronic respiratory failure on 4 L nasal cannula oxygen at home, colon cancer, in remission and coronary artery disease, who presented to the ER with worsening shortness of breath. On admission, labs were significant for elevated D-dimer with negative CTA for pulmonary embolism. CT-PE protocol showed large left pleural effusion and possible pneumonia along with nodule in the right lower lobe which was suspicious for malignancy. The patient was transfused 1 unit of packed red blood cells due to hemoglobin of 6.49 on initial labs. During hospital stay, the patient received thoracentesis as above on 08/16/2020. The patient felt significant relief status post thoracentesis. The patient was stable for the remainder of the hospital stay. I had discussion with patient that preliminary pathology reports were concerning for cancer. However, we would need to wait for final results to come back. Given tone blood with pleural effusion, the patient's home Brilinta was stopped until she could follow up with her primary care doctor and billet driller. DISPOSITION: Stable. DISCHARGE INSTRUCTIONS: 1. Location: Home. 2. Diet: Regular. 3. Activity: As tolerated. 4. Followup: The patient should follow up with PCP within 1-2 weeks and billet driller also within 1-2 weeks. We will notify the patient's family when cytology report is finalized. Job ID: [id number]
--- NOTE | 2020-08-22 19:22 | PQF ---
Dear : Juli Lee Date 08/22/20 Please exercise your independent, professional judgment in responding to the clarification form. Clinical indicators are provided on the bottom of this form for your review Can you please further clarify the diagnosis of the patient? ___ Final Diagnosis on the Pathology report: rare atypical cells suspicious for non cell carcinoma Clarification of Pathology report: Please check appropriate box(es): [ x ] Agree w the pathology finding of: carcinoma [ ] Other explanation of pathology findings (please specify) [ ] Other diagnosis please specify [ ] Unable to determine Physician Signature: Date/Time: For continuity of documentation, please document condition throughout progress notes and discharge summary. Thank You. To be completed by CDI/Coding staff for physician review: Present Clinical Indicators - Signs / Symptoms / Labs Results and Location in Medical Record [ x ] rare atypical cells suspicious for non cell carcinoma Pathology report pg.1 [ x ] Epithelial type cells Pathology report pg.1 [ x ] Right lower lobe mediastinal lymphadenopathy is present Pathology report pg.1 [ x ] The diagnosis is difficult due to the low numbers of these atypical cells Pathology report pg.1 [ x ] RLL suspicious for malignancy H and P pg.1 [ x ] Left pleural effusion H and P pg.1 [ x ] Preliminary pathology reports were concerning for cancer DS pg.1 Present Risk Factors Results and Location in Medical Record [ x ] 85 years old H and P pg.1 [ x ] COPD H and P pg.1 [ x ] Hx of colon cancer H and P pg.1 [ x ] Acute on chronic respiratory failure H and P pg.4 Present Treatments Results and Location in Medical Record [ x ] Thoracentesis Thoracentesis 08/16 [ x ] Oxygen supplementation H and P pg.5 [ x ] IV Antibiotics [facility] CDS/Corn Grinder Signature: Mervin Brooks Phone #: [facility] [phone] Date 08/22/2020 This is a permanent part of the Medical Record [facility]
== END 2020-08-18 09:50 | disposition home or self-care (01) | DRG 180 ==
LOC: ERS 19:30 → EEVIPCON 19:30 → SURG B 21:02
PROVIDERS: ADMIT Family Medicine; ATTEND Family Medicine
PROC: 0W9B3ZZ Drainage of Left Pleural Cavity, Percutaneous Approach (ICD-10-PCS; principal; 2020-08-16)
DX: C38.4 Malignant neoplasm of pleura (principal); J96.21 Acute and chronic respiratory failure with hypoxia; J18.9 Pneumonia, unspecified organism; J90 Pleural effusion, not elsewhere classified; J44.0 Chronic obstructive pulmonary disease with (acute) lower respiratory infection; Z20.822 Contact with and (suspected) exposure to COVID-19; N18.30 Chronic kidney disease, stage 3 unspecified; D63.1 Anemia in chronic kidney disease; I25.10 Atherosclerotic heart disease of native coronary artery without angina pectoris; D72.829 Elevated white blood cell count, unspecified; D50.9 Iron deficiency anemia, unspecified; Z95.5 Presence of coronary angioplasty implant and graft; Z85.038 Personal history of other malignant neoplasm of large intestine; Z79.82 Long term (current) use of aspirin; Z99.2 Dependence on renal dialysis; Z79.51 Long term (current) use of inhaled steroids; Z79.899 Other long term (current) drug therapy; Z79.52 Long term (current) use of systemic steroids; Z87.891 Personal history of nicotine dependence; I25.2 Old myocardial infarction
CPT/HCPCS: 36415; 71045; 71046; 76942; 80048; 82150; 82378; 82465; 82945; 83615; 84145; 84155; 84157; 85025; 85060; 85610; 85652; 85730; 86140; 88112; 88305; 88313; 88341; 88342; 89051; 94640; 99285; C9113; J7512; J7620

== ENCOUNTER 2020-08-28 12:05 | Inpatient (IN) | payer MEDICARE ==
--- NOTE | 2020-08-28 12:17 | CT ---
CT HEAD WITHOUT IV CONTRAST COMPARISON: None. HISTORY: Level 1 stroke. Symptoms have now resolved. TECHNIQUE: Axial CT imaging at 5 mm intervals from vertex through skull base without contrast FINDINGS: There is decreased attenuation in the periventricular white matter which is nonspecific but likely re flective of chronic small vessel ischemic changes. Low attenuation areas are seen in each basal ganglia which are nonspecific but likely attributable to lacunar infarctions of indeterminate age. Lo w-attenuation area right occipital lobe is present related to remote infarction. There is mild cerebral and cerebellar volume loss. The ventricular system is normal in size, shape, a nd position for the degree of sulcal atrophy. There is no evidence of an acute cortical infarction, hemorrhage, mass effect, or midline shift. Skull base has a normal CT appearance. Visualized paranasal sinuses are clear. Osseous structures appear intact. IMPRESSION: 1. No acute intracranial abnormality demonstrated. 2. Chronic small vessel ischemic changes and cerebral volume loss. 3. Above findings discussed with Dr. Darby in the emergency department on 08/28/2020 at 1214 hours.
[2020-08-28 12:42] LABS: Hemoglobin 7.2 g/dL (12.0-16.0); Mean Corpuscular HGB CONC 30.9 g/dL (32.0-36.0); Mean Corpuscular Hemoglobin 27.2 pg (27.0-31.0); Mean Corpuscular Volume 87.8 fL (78.0-98.0); Mean Platelet Volume 8.1 fL (7.4-10.4); Platelet Count 562 thou/uL (130-400); RBC Distribution Width 15.2 % (11.5-14.5); Red Blood Cell (RBC) Count 2.66 mill/uL (4.20-5.40); White Blood Cell (WBC) Count 24.8 thou/uL (4.8-10.8)
--- NOTE | 2020-08-28 12:46 | RAD ---
Portable frontal chest radiograph: 08/28/2020 COMPARISON: 08/17/2020 HISTORY: Left-sided facial droop, dyspnea FINDINGS: The cardiac silhouette appears enlarged, stable when compared to prior imaging. There is pu lmonary vascular congestion with diffuse increased linear interstitial density, nonspecific and worsened when compared to prior imaging. There is a moderate/large pleural effusion on the left which has increased in volume when compared to the prior examination. No pneumothorax is seen. Stent material overlies the cardiac silhouette just to the right of midline inferiorly. There is a dual lead transvenous pacing device inserted via a left subclavian approach. IMPRESSION: Worsening nonspecific interstitial density and enlarging moderate/large left pleural effu enmanuel. Increased density in the left perihilar region and right base may signify associated volume loss or infiltrate. These findings are better assessed on recent CT angiogram of the chest performed 08/15/2020.
[2020-08-28] MEDS ORDERED: Lidocaine 1% PF 5 ML VIAL ONE (12:51)
[2020-08-28 12:59] LABS: ALT (SGPT) 26 U/L (8-55); AST (SGOT) 34 U/L (5-34); Albumin 2.9 g/dL (3.4-4.8); Alkaline Phosphatase 104 U/L (40-110); Anion Gap 17 mmol/L (10-20); BUN (Urea Nitrogen) 39 mg/dL (9.8-20.1); Bilirubin, Total 0.4 mg/dL (0.2-1.2); Calc. Creatinine Clearance 0 mL/min (70-130); Calcium 8.6 mg/dL (7.8-10.44); Carbon Dioxide 26 mmol/L (23-31); Chloride 102 mmol/L (98-107); Globulin 3.5 g/dL (2.4-3.5); Glucose 196 mg/dL (83-110); Protein, Total 6.4 g/dL (6.0-8.3); Sodium 140 mmol/L (136-145)
[2020-08-28 13:00] LABS: Band 2 % (5-11); Hypochromia SLIGHT = 6-15 cells (100X) (0-5/hpf); Lymphocytes 2 % (21-51); MDiff Complete? YES; Monocytes 3 % (0-10); Neutrophil 93 % (42-75); Ovalocytes SLIGHT = 2-5 cells (100X) (0-1/hpf); Platelet Morphology Comment Appears Increased; Polychromasia SLIGHT = 2-3 cells (100X) (0-2/hpf)
--- NOTE | 2020-08-28 13:29 | CT ---
CTA Angio Chest W WO Con 08/28/2020 1:03 PM Indication: Dyspnea Technique: Multiple CTA images were obtained of the thorax with IV contrast. 3-D rendering: MIP chip nstructed images were created and reviewed. Comparison: August 15, 2020 Findings: Pulmonary arteries: No central or segmental pulmonary embolus is evident. Heart and Aorta: There is postsurgical change of an aortic valve replacement. There is a dual-lead p acemaker overlying left chest wall. There is prominent coronary artery and thoracic calcifications. Mediastinum:Adenopathy of the mediastinum is more prominent. One of the largest is seen within the le ft tracheobronchial region measuring 2.7 cm. This previously measured 2.2 cm. Lungs:There is prominent compressive volume loss within the left lung due to a large left pleural eff usion. There is scattered emphysema within the right lung. 1.2; pulmonary nodule within the right upper lobe is stable. 1.1 cm nodule within the right lower lobe is stable. Pleural space: Persistent large loculated left-sided pleural effusion Upper Abdomen: No acute abnormality. Osseous Structures: There is diffuse osteopenia. There is scattered degenerative and osteoarthritic change present. Soft tissues:No abnormality. Other findings:None. Impression: 1. No central or segmental pulmonary embolus. 2. Persistent loculated large left-sided pleural effusion with compressive atelectasis of the left anastasiia ng. 3. Stable right upper lobe and right lower lobe pulmonary nodules. 4. Worsening mediastinal lymphadenopathy.
[2020-08-28] MEDS ORDERED: Iopamidol-370 76% 500 ML 1 ML ONE (14:02)
[2020-08-28] MEDS ORDERED: Vancomycin 1 GM/200 ML BAG ONE (14:39)
[2020-08-28] MEDS ORDERED: Cefepime 2 GM VIAL ONE (14:39)
--- NOTE | 2020-08-28 14:47 | PDOC.FPRHP ---
- History of Present Illness Chief Complaint: SOB History of Present Illness: Pt is an 85 year old female with a history of COPD on 6L at home, CAD and lung cancer who presents to the ED with complaints of episode of L facial droop. Patient reports she was at home when HH nurse noted that patient started to drool and had some slurred speech this morning ~10 AM and occurred again @ 10:15. Patient had large BM just before symptom onset. Afterward, she was confused and felt "out of it". Pt took about 10-15 minutes to recover from this episode. Patient notes worsening SOB and weakness over the past 4 days. She has been in bed for 3 days now. Orthopnea at baseline, but worsening lately. Patient has decreased appetite and worsening fatigue. Recently d/c home on 08/18/19 from hospitalization. Had L sided thoracentesis with 1 L blood fluid removed at that time. Patient was diagnosed with lung cancer in 2017. Biopsy was completed and showed nonsmall cell carcinoma. Pt never followed up on pursuing treatment. Per chart review, lung nodules were noted in 2017. Disaster Or Damage Control Specialist: Dr. Toni Hughes @ [facility] ED Course: In the ED, thoracentesis was completed. 1 L bloody fluid was removed with imm ediate symptom improvement. Fluid send for work up. - Allergies/Adverse Reactions Allergies Allergy/AdvReac Type Severity Reaction Status Date / Time No Known Allergies Allergy Verified 05/01/20 02:40 - Home Medications Medication Instructions Recorded Confirmed Type Aspirin [Ecotrin Low Strength] 81 mg PO DAILY 03/04/19 08/28/20 History Esomeprazole Magnesium [Nexium 20 mg PO DAILY 03/04/19 08/28/20 History 24Hr] Ferrous Sulfate 325 mg PO DAILY 03/04/19 08/28/20 History Fexofenadine HCl [Kat Allergy] 180 mg PO DAILY 03/04/19 08/28/20 History Fluticasone/Salmeterol [Advair 1 inh IH BID 03/04/19 08/28/20 History Diskus 250/50] Ipratropium/Albuterol Sulfate 3 ml NEB TID 03/04/19 08/28/20 History [DuoNeb] Montelukast Sodium [Singulair] 10 mg PO DAILY 03/04/19 08/28/20 History Simvastatin [Zocor] 20 mg PO HS 03/04/19 08/28/20 History Venlafaxine HCl [Venlafaxine HCl 75 mg PO DAILY 03/04/19 08/28/20 History ER] Carvedilol [Coreg] 3.125 mg PO BID-WM 30 Days #60 tab 02/01/20 08/28/20 Rx Furosemide [Lasix] 40 mg PO BID #60 tablet 05/03/20 08/28/20 Rx predniSONE 20 mg PO QAM-WM #7 tab 05/03/20 08/28/20 Rx Acetaminophen [Tylenol Regular 650 mg PO Q4H PRN tab 08/17/20 08/28/20 Rx Strength] - History PMHx: COPD, colon cancer in remission, CAD PSHx: pacemaker, colectomy, appendectomy, cholecystectomy, TAVR, X3 stent FHx: non-contributory Social: former smoker, rare alcohol use, denies drug use. Lives at home alone, but has children staying with her since recent d/c from hospital. - Review of Systems General: reports: weight/appetite/sleep changes, fatigue. denies: fever/chills Eyes: denies: vision changes ENT: reports: rhinorrhea. denies: nasal congestion Respiratory: reports: shortness of breath, exercise intolerance, other (on home O2 @ 6 L NC). denies: cough Cardiovascular: reports: orthopnea Gastrointestinal: reports: nausea, diarrhea (last week when discharged from hospital. was given immodium at this time and constipation followed.), constipation (last BM this morning after coffee), other (black stools, takes iron) Genitourinary: denies: dysuria Skin: denies: lesions, jaundice Musculoskeletal: denies: tenderness, arthritis/arthralgias Neurological: reports: weakness (generalized), other (slurred speech and facial droop that resolved after 15 minutes @ 10 am this morning) Psychological: denies: anxiety, depression - Vital signs BP: 119/52 HR: 87 RR: 19 Tmax: 97.5 F Pox: 96% on 6 L NC Wt: 75 kg - Physical Exam Constitutional: NAD, awake, alert and oriented HEENT: normocephalic and atraumatic, conjunctiva clear, MMM Neck: FROM, trachea midline Chest: no-tender to palpation Heart: RRR, normal S1/S2, no murmurs/rubs/gallops, no edema Lungs: no respiratory distress, no retractions -Lungs: Diminished breath sounds on L side, unable to ausculate on left lung base. Abdomen: soft, non-tender -Abdomen: Chronic abdominal wall hernia present Musculoskeletal: normal structure, normal tone, ROM grossly normal Neurological: no focal deficit, CN II-XII intact, normal sensation Skin: no rash/lesions, no jaundice Heme/Lymphatic: no unusual bruising or bleeding Psychiatric: normal mood and affect FMR H&P: Results - Labs Result Diagrams: 08/29/20 01:42 08/29/20 01:42 Lab results: WBC 24.8 thou/uL (4.8-10.8) H 08/28/20 12:11 Hgb 7.2 g/dL (12.0-16.0) L 08/28/20 12:11 Hct 23.4 % (36.0-47.0) L 08/28/20 12:11 MCV 87.8 fL (78.0-98.0) 08/28/20 12:11 Plt Count 562 thou/uL (130-400) H 08/28/20 12:11 Band Neuts % (Manual) 2 % (5-11) L 08/28/20 12:11 Sodium 140 mmol/L (136-145) 08/28/20 12:11 Potassium 5.0 mmol/L (3.5-5.1) 08/28/20 12:11 Chloride 102 mmol/L (98-107) 08/28/20 12:11 Carbon Dioxide 26 mmol/L (23-31) 08/28/20 12:11 BUN 39 mg/dL (9.8-20.1) H 08/28/20 12:11 Creatinine 1.19 mg/dL (0.6-1.1) H 08/28/20 12:11 Glucose 196 mg/dL (83-110) H 08/28/20 12:11 Calcium 8.6 mg/dL (7.8-10.44) 08/28/20 12:11 Total Bilirubin 0.4 mg/dL (0.2-1.2) 08/28/20 12:11 AST 34 U/L (5-34) 08/28/20 12:11 ALT 26 U/L (8-55) 08/28/20 12:11 Alkaline Phosphatase 104 U/L (40-110) 08/28/20 12:11 B-Natriuretic Peptide 132.8 pg/mL (0-100) H 08/28/20 12:11 Serum Total Protein 6.4 g/dL (6.0-8.3) 08/28/20 12:11 Albumin 2.9 g/dL (3.4-4.8) L 08/28/20 12:11 - EKG Interpretation EKG: NSR, no ST segment changes - Radiology Interpretation Chest x-ray Status: image reviewed by me, report reviewed by me Additional comment: Enlarging left pleural effusion, density in left perihilar region and R base CT scan - chest Status: report reviewed by me Additional comment: No pulmonary embolism present. Large L pleural effusion present FMR H&P: A/P - Problem List (1) Pleural effusion Current Visit: Yes Status: Acute Code(s): J90 - PLEURAL EFFUSION, NOT ELSEWHERE CLASSIFIED (2) COPD (chronic obstructive pulmonary disease) Current Visit: Yes Status: Acute (3) Anemia, normocytic normochromic Current Visit: No Status: Chronic Code(s): D64.9 - ANEMIA, UNSPECIFIED (4) CAD (coronary artery disease) Current Visit: No Status: Chronic Code(s): I25.10 - ATHSCL HEART DISEASE OF [place] CORONARY ARTERY W/O ANG PCTRS Qualifiers: Coronary Disease-Associated Artery/Lesion type: [place] artery [place] vs. transplanted heart: [place] heart Associated angina: without angina Qualified Code(s): I25.10 - Atherosclerotic heart disease of [place] coronary artery without angina pectoris (5) CKD (chronic kidney disease) stage 3, GFR 30-59 ml/min Current Visit: No Status: Chronic Code(s): N18.3 - CHRONIC KIDNEY DISEASE, STAGE 3 (MODERATE) * DO NOT USE * (6) Dyslipidemia Current Visit: No Status: Chronic Code(s): E78.5 - HYPERLIPIDEMIA, UNSPECIFI ED (7) GERD (gastroesophageal reflux disease) Current Visit: No Status: Chronic Code(s): K21.9 - GASTRO-ESOPHAGEAL REFLUX DISEASE WITHOUT ESOPHAGITIS (8) Hypertension Current Visit: No Status: Chronic Code(s): I10 - ESSENTIAL (PRIMARY) HYPERTENSION Qualifiers: Hypertension type: essential hypertension Qualified Code(s): I10 - Essential (primary) hypertension - Plan 85 year old female with hx of non small cell lung cancer and COPD presented with SOB and weakness Acute hypoxic respiratory failure due to left sided pleural effusion likely 2/2 non-small cell lung cancer s/p thoracentesis Sat 86% on 6L in ED when laying down, transitioned to HFNC then to 6L again after improvement of O2 sat. CXR: large L pleural effusion. CT Chest: large L pleural effusion, compression atelectasis, worsening mediastinal LAD, R sided upper and lower pulmonary nodules. Underwent thoracentesis in ED with 1 L bloody fluid. Previously admitted from 08/15-08/18 for L pleural exudative effusion with studies + for non-small cell lung cancer. -Admit to stroke inpatient -F/u GS, culture, LDH, protein analysis of thoracic fluid. Likely due to malignancy -Received Cefepime (08/28) and Vanc (08/28) in ED. Will discontinue as elevated procal of 0.42 and WBC of 24 likely due to malignancy -Consult pulmonary in am. Considering pleurex catheter -Consult oncology in am. Has not been evaluated after hospital discharge -Consult palliative for goals of care discussion Possible TIA 2 episodes of L facial droop and slurred speech at 1000 and 1015 with confusion afterward lasting 15 minutes. Symptoms resolved. Likely vasovagal response due to straining during BM just prior. CT [place] showed no acute process, chronic small vessel ischemic changes. -Brain MRI to further evaluate Symptomatic normocytic anemia Hgb 7.2, MCV 87.8 in ED. Likely due to anemia of chronic disease and malignancy. Hx of iron deficiency anemia -2 units RBC ordered in ED -4 hour post transfusion H&H -Monitor with am labs ARMANI on CKD -Monitor with am lab -Encourage PO intake COPD -Sat'ing well on home O2 6L. Previously on HFNC in ED after orthopnea -Duonebs Q4H PRN -Continue home meds Hx of colon cancer - CEA 2.33 on previous admission Constipation BM this am after 5 days -Miralax scheduled daily Hx of CAD, s/p stent Underwent drug elluting stent 01/2020. Brillinta was d/c on 08/18 due to bloody pleural fluid and anemia during hospitalization -Continue home meds Anxiety Depression -Continue home meds GERD -Continue home med Hx of aortic stenosis s/p TAVR -Aware PCP: Tarik Code: FULL DVT ppx: SCDs Dispo: Admit to oncology floor, inpatient. Expected LOS > 48 hours FMR H&P: Upper Level - Plan Date/Time: 08/28/20 1444 I agree withthe HPI, ROS and PE of the internal audit director documentation. 1. Acute hypoxic respiratory failure 2/2 L sided pleural effusion, most likely 2/2 non-small cell lung cancer. - recent hx admission for same problem. Worsened SOB over last 3-4 days. 86% on 6 L while lying flat, improved with elevation of head and thoracentesis. Severely diminished breath sounds over left side of chest. - CT chest: persistent loculated large L-sided pleural effusion with compressive atelectasis of L-lung. Worsening mediastinal LAD. R sided upper and lower pulmonary nodules. - CXR: large L sided pleural effusion - thoracentesis performed in ER with Dr. Darby at bedside. Ordered LDH, GS/culture and protein on fluid for analysis. ~ 1000 mL dark bloody fluid. sent to lab. - received rocephin and azithro on previous hx stay. - Procal 0.42, WBC 24.8, most likely cause is a malignant, will hold antibiotic therapy at this time. - palliative care consulted for L sided chest mass suspicious for cancer. Pt unsure if she would like treatment. - will consult pulmonology for recommendations of recurring L sided pleural effusion and for help with diagnosis of possible malignancy. May require a pluerX cath. - recent thoracentesis: + LIGHTS Criteria for exudative effusion, suspected malignant parapneumonic effusion. - cytology with few non-small cell carcinoma - will consult onc for treatment option discussions. 2. Brief episode of encephalopathy with slurred speech, and L sided facial droop. - resolved after 30 minutes, occurred right after a BM with significant amount of straining involved. - likely a vasovagal episode. Pt's symptoms of drooling and slurred speech completely resolved. - Brain CT: no acute intracranial hemorrhage or abnormality, chronic small vessel ischemic changes and cerebral volume loss. - will order brain MRI - neuro exam: CN II-XII grossly intact, cerebellar function intact, nml strength and sensation in all 4 ext. 3. COPD - duonebs Q4H PRN - 6 L home O2 - required HFNC for a small amount of time in ER, back to baseline 6 L NC currently. 4. Symptomatic anemia - ordered 2 units pRBC's ordered from ED, will f/u post transfusion - has been gradual decline in h/ over the last 2 years. - hx of iron deficiency but not responsive to PO iron. likely secondary to the malignancy and anemia of chronic disease 5. Hx of colon cancer - CEA 2.33 on previous admission. 6. Constipation - will start miralax 7. slight ARMANI - oral hydration 8. Hx of CAD, s/p stent - drug elluting stent 01/2020 - brillinta was stopped after last admission due to bloody pleural fluid and symptomtaic anemia. 9. Hx of aortic stenosis s/p TAVR - aware refer to internal audit director note for other chronic problems. I, Christie Flores, have evaluated this patient and agree with findings/plan as outlined by internal audit director resident. Pertinent changes/additions are listed here. Addendum - Attending - Attending Attestation Date/Time: 08/29/20 2882 I personally evaluated the patient and discussed the management with the team. I agree with the History, Examination, Assessment and Plan documented above with any addition or exceptions noted below. S/p therapeutic thora with good result. Likely needs pleurex - consult in AM.
[2020-08-28 14:57] LABS: INR-International Normal Ratio 1.2; Prothrombin Time 15.8 sec (12.0-14.7)
[2020-08-28 14:58] LABS: PTT 34.1 sec (22.9-36.1)
[2020-08-28 14:59] LABS: Bilirubin Negative (Negative); Blood, Urine Negative (Negative); Clarity Clear (Clear); Glucose, Urine (Dipstick) Normal (Negative); Ketone, Urine Negative (Negative); Leukocyte Negative Leu/uL (Negative); Nitrite Negative (Negative); Protein, Urine (Dipstick) Negative (Neg-Trace); Specific Gravity, Urine 1.046 (1.002-1.036); Urobilinogen Normal mg/dL (Less than 2)
--- NOTE | 2020-08-28 16:16 | RAD ---
XR Chest 1 View Portable History: Cough Comparison: Radiograph same day. CT angiogram same day Findings: Mild interval size decreased left layering pleural effusion. No pneumothorax. Pulmonary nodules are not well defined nor are the pleural-based masses. Impression: No pneumothorax. Slight decreased size left layering pleural effusion.
[2020-08-28] MEDS ORDERED: Ondansetron ODT 4 MG TAB PO PRN (16:25)
[2020-08-28] MEDS: Acetaminophen 325 MG TAB PO PRN (17:23)
[2020-08-28 17:29] VITALS: BMI 29.6
[2020-08-28] MEDS: Carvedilol 3.125 MG TAB PO SCH (18:02)
[2020-08-28] MEDS: Mometasone 200 MCG/Formoterol 5 MCG 120 PUFF INHALER INH SCH (18:41)
[2020-08-28] MEDS: Furosemide 40 MG TAB PO SCH (21:42)
[2020-08-28] MEDS: Atorvastatin Calcium 10 MG TAB PO SCH (21:42)
[2020-08-29] MEDS: Acetaminophen 325 MG TAB PO PRN ×4 (00:58→19:38)
[2020-08-29 02:30] LABS: #Basophils 0.1 thou/uL (0.0-0.2); #Eosinphils 0.2 thou/uL (0.0-0.7); #Lymphocytes 0.9 thou/uL (1.20-3.40); #Monocytes 1.1 thou/uL (0.11-0.59); #Neutrophils 15.6 thou/uL (1.40-6.50); %Basophils 0.4 % (0.0-1.0); %Monocytes 6.4 % (0.0-10.0); %Neutrophils 87.3 % (42.0-75.0); Hemoglobin 8.3 g/dL (12.0-16.0); Mean Corpuscular HGB CONC 31.7 g/dL (32.0-36.0); Mean Corpuscular Volume 88.3 fL (78.0-98.0); Mean Platelet Volume 8.1 fL (7.4-10.4); Platelet Count 394 thou/uL (130-400); RBC Distribution Width 14.6 % (11.5-14.5); Red Blood Cell (RBC) Count 2.98 mill/uL (4.20-5.40); White Blood Cell (WBC) Count 17.8 thou/uL (4.8-10.8)
[2020-08-29 02:35] LABS: Anion Gap 17 mmol/L (10-20); BUN (Urea Nitrogen) 40 mg/dL (9.8-20.1); Calc. Creatinine Clearance 43 mL/min (70-130); Calcium 8.5 mg/dL (7.8-10.44); Carbon Dioxide 24 mmol/L (23-31); Chloride 101 mmol/L (98-107); Glucose 154 mg/dL (83-110); Potassium 5.1 mmol/L (3.5-5.1); Sodium 137 mmol/L (136-145)
--- NOTE | 2020-08-29 06:46 | PDOC.FM ---
- Subjective Subjective: Reports pain at thoracentesis incision site, improving. SOB has significantly improved since presentation to ED yesterday. Denies headache, vision changes, chest pain, wheezing, palpitations, nausea and abdominal pain. Says she is coping well with cancer diagnosis and anticipated it prior to diagnosis. Plans to reach out to personal lobster man for spiritual care. Is open to speaking with palliative today. - Objective MAR Reviewed: Yes Vital Signs & Weight: Vital Signs (12 hours) Temp Pulse Pulse Resp BP BP BP 08/29/20 03:24 98.0 F 79 18 120/61 08/28/20 23:38 98.3 F 81 20 134/71 08/28/20 21:38 97.8 F 75 28 H 116/67 08/28/20 21:35 08/28/20 20:00 98.4 F 73 18 113/50 L 08/28/20 19:10 98.5 F 79 16 110/62 08/28/20 18:47 97.5 F L 79 16 119/62 08/28/20 18:41 80 16 Pulse Ox 08/29/20 03:24 93 L 08/28/20 23:38 92 L 08/28/20 21:38 93 L 08/28/20 21:35 93 L 08/28/20 20:00 93 L 08/28/20 19:10 93 L 08/28/20 18:47 95 08/28/20 18:41 93 L Weight Weight 73.482 kg I&O: 08/27/20 08/28/20 08/29/20 06:59 06:59 06:59 Intake Total 1080 Output Total 200 Balance 880 Result Diagrams: 08/29/20 01:42 08/29/20 01:42 Phys Exam - Physical Examination Constitutional: NAD HEENT: moist MMs, sclera anicteric Neck: full ROM Respiratory: no wheezing, no rales, no rhonchi Decreased breath sounds on L, improved from yesterday No respiratory distress. No increased work of breathing Cardiovascular: RRR, no significant murmur Gastrointestinal: soft, non-tender, positive bowel sounds Musculoskeletal: no edema Neurological: moves all 4 limbs Psychiatric: normal affect, A&O x 3 Skin: no rash Dx/Plan (1) Pleural effusion Code(s): J90 - PLEURAL EFFUSION, NOT ELSEWHERE CLASSIFIED Status: Acute (2) COPD (chronic obstructive pulmonary disease) Status: Acute (3) Anemia, normocytic normochromic Code(s): D64.9 - ANEMIA, UNSPECIFIED Status: Chronic (4) CAD (coronary artery disease) Code(s): I25.10 - ATHSCL HEART DISEASE OF [place] CORONARY ARTERY W/O ANG PCTRS Status: Chronic Qualifiers: Coronary Disease-Associated Artery/Lesion type: [place] artery [place] vs. transplanted heart: [place] heart Associated angina: without angina Qualified Code(s): I25.10 - Atherosclerotic heart disease of [place] coronary artery without angina pectoris (5) CKD (chronic kidney disease) stage 3, GFR 30-59 ml/min Code(s): N18.3 - CHRONIC KIDNEY DISEASE, STAGE 3 (MODERATE) * DO NOT USE * Status: Chronic (6) Dyslipidemia Code(s): E78.5 - HYPERLIPIDEMIA, UNSPECIFIED Status: Chronic (7) GERD (gastroesophageal reflux disease) Code(s): K21.9 - GASTRO-ESOPHAGEAL REFLUX DISEASE WITHOUT ESOPHAGITIS Status: Chronic (8) Hypertension Code(s): I10 - ESSENTIAL (PRIMARY) HYPERTENSION Status: Chronic Qualifiers: Hypertension type: essential hypertension Qualified Code(s): I10 - Essential (primary) hypertension - Plan Plan: 85 year old female with hx of non small cell lung cancer and COPD presented with SOB and weakness Acute hypoxic respiratory failure due to left sided pleural effusion likely 2/2 non-small cell lung cancer s/p thoracentesis Sat 86% on 6L in ED when laying down, transitioned to HFNC then to 6L again after improvement of O2 sat. CXR: large L pleural effusion. CT Chest: large L pleural effusion, compression atelectasis, worsening mediastinal LAD, R sided upper and lower pulmonary nodules. Underwent thoracentesis in ED with 1 L bloody fluid. Previously admitted from 08/15-08/18 for L pleural exudative effusion with studies + for non-small cell lung cancer. -Admit to stroke inpatient -Exudative effusion present, likely 2/2 to malignancy -Received Cefepime (08/28) and Vanc (08/28) in ED. Will discontinue as elevated procal of 0.42 and WBC of 24 likely due to malignancy -Consult pulmonary. Considering pleurex catheter -Consult oncology. Has not been evaluated after hospital discharge -Pallitive consulted for goals of care discussion -PT/OT/CM consulted Possible TIA 2 episodes of L facial droop and slurred speech at 1000 and 1015 with confusion afterward lasting 15 minutes. Symptoms resolved. Likely vasovagal response due to straining during BM just prior. CT [place] showed no acute process, chronic small vessel ischemic changes. -Brain MRI to further evaluate Symptomatic normocytic anemia Hgb 7.2, MCV 87.8 in ED. Likely due to anemia of chronic disease and malignancy. Hx of iron deficiency anemia -Hgb improved to 8.3 s/p 1 unit pRBC -Monitor with am labs ARMANI, improved on CKD -Monitor with am lab. Improved 1.19 > 1.09 -Encourage PO intake COPD -Sat'ing well on home O2 6L. Previously on HFNC in ED after orthopnea -Duonebs Q4H PRN -Continue home meds Hx of colon cancer - CEA 2.33 on previous admission Constipation BM this am after 5 days -Miralax scheduled daily Hx of CAD, s/p stent Underwent drug elluting stent 01/2020. Brillinta was d/c on 08/18 due to bloody pleural fluid and anemia during hospitalization -Continue home meds Anxiety Depression -Continue home meds GERD -Continue home med Hx of aortic stenosis s/p TAVR -Aware PCP: Tarik Code: FULL DVT ppx: SCDs Dispo: Pending further medical management and PT/OT evaluation Addendum - Attending - Attending Attestation Date/Time: 08/29/20 [id number] I personally evaluated the patient and discussed the management with the team. I agree with the History, Examination, Assessment and Plan documented above with any addition or exceptions noted below.
[2020-08-29] MEDS: Mometasone 200 MCG/Formoterol 5 MCG 120 PUFF INHALER INH SCH ×2 (07:09→18:43)
[2020-08-29] MEDS: Polyethylene Glycol 3350 17 GM Packet PO SCH (08:01)
[2020-08-29] MEDS: Montelukast Sodium 10 mg Tablet PO SCH (08:02)
[2020-08-29] MEDS: Venlafaxine HCl XR 75 MG CAP PO SCH (08:02)
[2020-08-29] MEDS: predniSONE 20 MG TAB PO SCH (08:03)
[2020-08-29] MEDS: Carvedilol 3.125 MG TAB PO SCH ×2 (08:03→16:46)
[2020-08-29] MEDS: Ferrous Sulfate 325 MG TAB PO SCH (08:03)
[2020-08-29] MEDS: Aspirin 81 mg Enteric Coated Tablet PO SCH (08:03)
[2020-08-29] MEDS: Loratadine 10 MG TAB PO SCH (08:03)
[2020-08-29] MEDS: Furosemide 40 MG TAB PO SCH ×2 (08:03→19:38)
[2020-08-29] MEDS ORDERED: Iopamidol-370 76% 500 ML 1 ML ONE (14:20)
--- NOTE | 2020-08-29 14:48 | PDOC.PALCO ---
Palliative Care Consult - Consult Details Requesting Physician: Dr Steinberg Reason for Consult: goals of care, assistance with communication prognosis/disease, family support Family Members Present: kimberly - Pertinent HPI 85 yo female admitted 08/28/20 for SOB and episode of facial droop- HH noticed her starting to drool and slurring speech. In ED, apparently neuro symprtoms resolved but was tapped by thoracentesis for 1 liter of bloody fluid. Previous admission on 08/18/20 also for pleural effusion and tapped for a liter and sent for pathology-results were rare atypical cells suspicious for small cell lung carcinoma. In 2017, was diagnosed with lung cancer per biopsy-small cell lung cancer. Granddaughter is at bedside- states patient lives alone with close family support- currently they are rotating care and have been staying with her FT. Granddaughter states that she had not gotten out of bed for 3 days previous to admit because of SOB and weakness. Dr Araiza came in discussed pleurodesis vs pleurex for recurrent pleural effusions. Talked with daughter, Kristen, about potential recurrent lung cancer and options for future care- presented with option for home with Hospice. Discussed possibility of chemo/radiation with patient and she is going to think about it. At this point, family is going to discuss among themselves and await final decision of lead radiologic technologist on options for treatment of pleural effusions or lung cancer. - Pertinent PMH COPD, CAD with AVR, colon cancer in remission, pleural effusions - Social History Smoking Status: Former smoker Smoking: quit greater than 1 year Alcohol Use: none Drug Use History: none Living Situation: independent - Medications MAR Reviewed: Yes - Allergies Allergies/Adverse Reactions: Allergies Allergy/AdvReac Type Severity Reaction Status Date / Time No Known Allergies Allergy Verified 05/01/20 02:40 - ROS Constitutional: alert, weakness Eyes: other (Denies itching or drainage) Cardiology: other (Denies CP, palpitations, edema) Gastrointestinal: other (denies) Musculoskeletal: other (generalized weakness) - Objective Vital Signs: Vital Signs - Most Recent Temp Pulse Resp BP Pulse Ox 97.9 F 72 20 109/49 L 92 L 08/29/20 12:00 08/29/20 12:00 08/29/20 12:00 08/29/20 12:00 08/29/20 12:00 - Advance Directives Specific Directives: DNAR - Physical Exam Constitutional: NAD Deviation from normal: weak but can stand HEENT: EOMI, moist MMs, sclera anicteric Respiratory: clear to auscultation bilateral, no rales, no rhonchi, no wheezing, unlabored breathing Deviation from normal: Decreased bases Cardiovascular: no rub, no significant murmur, RRR Gastrointestinal: continent, soft, non-tender Genitourinary: continent Musculoskeletal: no cyanosis, no clubbing, no edema Neurology: moves all 4 limbs, no focal deficits Skin: cap refill <2 seconds, no lesions, normal turgor Psychiatric: A&O x 3, normal affect, normal mood - Problem List (1) COPD (chronic obstructive pulmonary disease) Current Visit: No Status: Acute (2) Pleural effusion Code(s): J90 - PLEURAL EFFUSION, NOT ELSEWHERE CLASSIFIED Current Visit: Yes Status: Acute (3) Acute and chronic respiratory failure with hypoxia Code(s): J96.21 - ACUTE AND CHRONIC RESPIRATORY FAILURE WITH HYPOXIA Current Visit: No Status: Acute (4) Acute on chronic diastolic (congestive) heart failure Code(s): I50.33 - ACUTE ON CHRONIC DIASTOLIC (CONGESTIVE) HEART FAILURE Current Visit: No Status: Acute (5) Encounter for palliative care Code(s): Z51.5 - ENCOUNTER FOR PALLIATIVE CARE Current Visit: Yes Status: Acute - Plan/Recommendations Plan: Introduced palliative care for goals of care. Spoke with daughter and granddaughter and patient regarding their goals. Introduced possibility of using hospice in the home to assist with their care giving and equipment needs to make the patient more comfortable Discussed possibility that she may have a lung malignancy and consideration of whether to pursue chemotherapy and/or radiation Natural Resource Economist presented using PLEUREX for assistance of control of recurrent pleural effusions 90 minutes spent on this encounter with >50% of the time in counseling and coordination of care. Thank you for this very appropriate consult.
--- NOTE | 2020-08-29 15:20 | CON ---
DATE OF CONSULTATION: 08/29/2020 REQUESTING PHYSICIAN: Dr. Steinberg with [facility] Residency service. CHIEF COMPLAINT: Shortness of breath. HISTORY OF PRESENT ILLNESS: The patient is an 85-year-old former smoker, who is an oxygen-dependent COPD patient. About the middle of April of 2020, she underwent TAVR in [place] that procedure apparently was complicated by need for pacemaker implantation acutely. She describes having had in 2017 a nondiagnostic percutaneous biopsy of left-sided lung nodule and because of problems related to the biopsy, opted to not pursue it any further. She said that following her TAVR, she briefly had some improvement in her shortness of breath, but that was short lived. When she presented on May 01 of last year because of shortness of breath, she had a chest x-ray that had sharp diaphragms and costophrenic angles bilaterally. On August 15, she had a chest x-ray that showed a fairly large left pleural effusion and when a L of bloody fluid was tapped, the cytology was suspicious for but not diagnostic of a non-small cell lung cancer. She was discharged roughly a week after that thoracentesis, but presented again yesterday with a transient episode of slurred speech and facial droop consistent with a TIA. CT scanning of her head showed no acute changes. Carotid studies were not pursued as her chest x-ray showed a large left pleural effusion. This was confirmed by CT scanning and upon questioning, the patient describes increasing shortness of breath. She had improvement symptomatically with thoracentesis yesterday. PAST MEDICAL HISTORY: Also significant for colon cancer, coronary artery disease. HOME MEDICATIONS: Include, 1. Prednisone 20 mg a day. 2. Singulair 10 mg a day. 3. DuoNeb t.i.d. 4. Advair Diskus b.i.d. 5. Venlafaxine 75 mg a day. 6. Zocor 20 mg a day. 7. Nexium 20 mg a day. 8. Coreg 3.125 mg b.i.d. 9. Baby aspirin. ALLERGIES: SHE DENIES ANY MEDICAL ALLERGIES. REVIEW OF SYSTEMS: Positive for persistent shortness of breath. PHYSICAL EXAMINATION: GENERAL: She is an elderly woman, breathing through pursed lips. VITAL SIGNS: Heart rate is 72, blood pressure 109/49, temperature is 97.9. LUNGS: She has diminished breath sounds. She has dramatic decreased force of exhalation when I ask her to blow out hard against my hand. HEART: She has a regular rate and rhythm. LABORATORY DATA: Her hemoglobin is 8.3 with an MCV of 88.3, white count 17.8, platelets 394,000. PT is 15.8 with an INR of 1.2. Electrolytes are normal. BUN 39, creatinine 1.19. Alkaline phosphatase 104, albumin 2.9. Urinalysis was clean. Pleural fluid from yesterday had a glucose of 124 and LDH of 1431 and amylase of 14. Her chest x-ray shows a large left pleural effusion. CT scan suggests some loculation, but no obvious rind formation, shows extensive parenchymal disease bilaterally with almost honeycombing. IMPRESSION AND RECOMMENDATIONS: While not proven, this is almost surely malignant effusion, cytology was suggestive of it. In her 80s, she apparently had a lung nodule and now she has a bloody effusion on the same side that has rapidly recurred. Having difficulty finding any post thoracentesis films to surveillance investigator to what extent it is reaccumulating. I discussed with the patient and her granddaughter who is present with her the pros and cons of pleurodesis and PleurX catheter placement. Given the absence of a diagnosis and her understandable preference to be able to go home without a tube in place, I think that thoracoscopy and pleurodesis is a reasonable option predicated upon her tolerance of one-lung anesthesia. Based on my bedside impression, I thought that it might be worth starting off with that as a plan even if it required intermittent single lung ventilation to complete the procedure. However, after the granddaughter had a chance to talk about what we had discussed with other family members, they filled in some blanks saying that she had problems during her TAVR that were attributed to lung disease in general anesthesia. In further discussions and the patient talking about hearing the physicians talking and complications related to the emergent need for pacing, I am not sure how accurate that assessment is given that and the patient's grave concerns about the potential for prolonged ventilation should she undergo procedure under general anesthesia. I am going to approach this with a PleurX catheter instead. Job ID: [id number]
--- NOTE | 2020-08-29 17:03 | CT ---
CT ABDOMEN AND PELVIS WITH IV CONTRAST 08/29/2020 CLINICAL INFORMATION: Patient with lung cancer. COMPARISON: CTA chest on 08/28/2020. Technique: Multiple contiguous axial CT images are obtained through the abdomen and pelvis with IV contrast. Cor onal reformatted images are provided. FINDINGS: Lower Chest: There is incomplete visualization of a large loculated pleural fluid at the left lung ba se with prominent pleural-based masses likely due to metastatic pleural-based disease. There is also additional areas of increased density within the more posterior aspect of the collection with as sociated lower density areas within areas of increased density, and findings may represent associated parenchymal mass at the left lung base or possibly secondary to associated necrotizing pne umonia. There is a pulmonary nodule again seen at the right lung base measuring 1.3 cm. Aortic valve replacement is partially imaged. Cardiac pacemaking leads are partially imaged. Vessels: Vascular calcifications are seen in the abdominal aorta and involving the iliac arteries. Abdomen: Portal vein:Patent Gallbladder: Surgically absent. Liver: within normal limits. Spleen: within normal limits. Pancreas: within normal limits. Adrenals: within normal limits. Kidneys: within normal limits. Bowel: Evidence of colonic diverticulosis. Small bowel is normal in caliber. There are postoperative changes in the region of the ascending colon. Peritoneum: No ascites or free air; no fluid collection. Mesentery and Retroperitoneum: No enlarged mesenteric or retroperitoneal lymph nodes. Abdominal Wall: There is a ventral abdominal wall hernia with the defect measuring approximately 5.2 cm. Multiple loops of small bowel extend into the hernia defect without evidence of a bowel obstruction. Pelvis: Reproductive Organs: Uterus is small or absent. Bladder: Urinary bladder is filled with contrast likely related to prior contrasted study. Bones: Degenerative changes are noted in the spine with right convex scoliosis lumbar spine. No suspi cious lytic or sclerotic osseous lesions are identified. IMPRESSION: 1. Partial visualization of previously seen loculated large left pleural fluid collection. There are multiple pleural-based soft tissue mass likely related to pleural-based metastatic disease. There are also areas of increased density seen within the pleural fluid at the left lung base, and while a portion of this density is related to compressive atelectasis, there are low attenuation areas within areas of increased density, and findings may be related to either a heterogeneous parenchymal lung mass in this region or secondary to necrotizing pneumonia. 2. Pulmonary nodule right lung base worrisome for metastatic lesion. 3. Postcholecystectomy changes. 4. Prominent ventral abdominal wall hernia containing loops of small bowel without evidence of bowel obstruction. An additional small ventral abdominal wall fat-containing hernia is seen superior to this region. 5. Postoperative changes ascending colon as well as postcholecystectomy changes. 6. No acute findings in the abdomen or pelvis.
--- NOTE | 2020-08-29 17:20 | CON ---
DATE OF CONSULTATION: REASON FOR CONSULTATION: Lung cancer. HISTORY OF PRESENT ILLNESS: Ms. Maldonado is an 85-year-old female with a history of COPD, who presented to the emergency room yesterday with facial droop. She underwent a CT scan, which showed no evidence of stroke. Her symptoms resolved and she was diagnosed with a TIA. The patient was recently discharged home from prior hospitalization on 08/18, where she was noted to have a severe anemia, right lower lobe lung nodule, and a large pleural effusion. She underwent a thoracentesis. Cytology returned rare atypical cells suspicious for a non-small cell carcinoma. Unfortunately, there were a low number of abnormal cells and further diagnosis could not be made. The patient has a history of lung nodule. She saw Dr. Olvera in 2017, and a CT-guided needle biopsy was attempted, apparently unsuccessful according to the patient. She did undergo a PET scan in 2017, which showed hypermetabolic activity and the bilobed nodular opacity in the right upper lobe. The SUV was 4.4, which was consistent with malignancy. I do not see any further followup, although she does see Dr. Olvera at [facility]. I have no access to records. She also has a remote history of early stage colon cancer, treated with surgical intervention in 2011. On this admission, she underwent an additional thoracentesis. Cytology is currently pending. The plan is a PleurX catheter. PAST MEDICAL HISTORY: 1. Right upper lobe lung nodule, 1st noted in 2017. 2. Recent loculated pleural effusion. 3. COPD. 4. History of colon cancer. 5. Coronary artery disease. PAST SURGICAL HISTORY: 1. Pacemaker placement and cardiac stent. 2. Colectomy. 3. Appendectomy. 4. Cholecystectomy. 5. Thoracentesis. ALLERGIES: NO KNOWN DRUG ALLERGIES. HOME MEDICATIONS: 1. Advair. 2. Kat. 3. DuoNeb. 4. Ecotrin. 5. Iron. 6. Nexium. 7. Singulair. 8. Venlaxafine. 9. Zocor. 10. Coreg. 11. Lasix. 12. Prednisone. 13. Tylenol. FAMILY HISTORY: Noncontributory. SOCIAL HISTORY: Single. Lives alone. No alcohol, tobacco, or illicit drug use. REVIEW OF SYSTEMS: A 12-point review of systems negative except for HPI. PHYSICAL EXAMINATION: VITAL SIGNS: Temperature 97.9, pulse is 72, respiratory rate 20, blood pressure is 109/49, and she is 92% on 5 L. GENERAL: A well-developed, well-nourished female, in mild respiratory distress. HEENT: Normocephalic and atraumatic. Pupils are equal and reactive to light. NECK: Supple. CV: Regular rate and rhythm. LUNGS: She has expiratory wheeze. ABDOMEN: Soft and nontender. Bowel sounds are positive. EXTREMITIES: No clubbing or cyanosis. SKIN: No rash. LYMPH: No palpable cervical, supraclavicular, or axillary lymphadenopathy. NEUROLOGIC: Nonfocal. PERTINENT LABORATORY DATA AND X-RAYS: WBCs are 17.8, hemoglobin 8.3, hematocrit 26.3, and platelet count 394,000. She has 87% neutrophils and 5% lymphocytes PT is 15.8, INR is 1.2, and PTT is 34.1. Sodium 137, potassium 5.1, chloride 101, CO2 is 24, BUN is 40, creatinine 1.09, and calcium 8.5. Bilirubin 0.4, AST is 34, ALT is 26, and alkaline phosphatase is 104. Serum total protein is 6.4, albumin 2.9, and globulin 3.5. LDH is 470. Troponin negative. BNP is 132. CEA is 2.3. Radiology per HPI. ASSESSMENT: 1. Malignant pleural effusion with lung nodules. 2. Severe oxygen-dependent chronic obstructive pulmonary disease. 3. Remote history of colon cancer. DISCUSSION: The patient has been seen by Dr. Araiza, and is planning a PleurX catheter placement. She has not had a complete staging. A brain MRI is ordered. We will also order a CT scan of the abdomen and pelvis. Her pleural fluid had inadequate cells to provide a diagnosis other than likely broad [id number] lung cancer. We need tissue for further differentiation and immunohistochemical staining. If she has any metastatic disease in her liver, CT-guided tissue biopsy would be ideal. Otherwise, we will discuss further with Pulmonary for possible bronchoscopy. Given the slow growth since PET scan in 2017, this is likely adenocarcinoma. We need tissue to confirm. This was discussed in detail with the patient and daughter. According to the patient, she was told she is not a candidate for general anesthesia due to lungs. Case has been discussed with Dr. August. Thank you for the consult. We will follow along with her hospital course. Job ID: [id number] [email or web address]
[2020-08-29] MEDS: Atorvastatin Calcium 10 MG TAB PO SCH (19:38)
[2020-08-30 05:28] LABS: Anion Gap 14 mmol/L (10-20); BUN (Urea Nitrogen) 38 mg/dL (9.8-20.1); Calc. Creatinine Clearance 50 mL/min (70-130); Calcium 8.9 mg/dL (7.8-10.44); Carbon Dioxide 27 mmol/L (23-31); Chloride 101 mmol/L (98-107); Glucose 113 mg/dL (83-110); Potassium 4.7 mmol/L (3.5-5.1); Sodium 137 mmol/L (136-145)
[2020-08-30 06:50] LABS: Band 12 % (5-11); Eosinophils 1 % (0-10); Hemoglobin 8.5 g/dL (12.0-16.0); Lymphocytes 6 % (21-51); MDiff Complete? YES; Mean Corpuscular HGB CONC 30.2 g/dL (32.0-36.0); Mean Corpuscular Hemoglobin 26.6 pg (27.0-31.0); Mean Corpuscular Volume 88.1 fL (78.0-98.0); Monocytes 6 % (0-10); Neutrophil 75 % (42-75); Platelet Count 467 thou/uL (130-400); RBC Distribution Width 15.3 % (11.5-14.5); Red Blood Cell (RBC) Count 3.18 mill/uL (4.20-5.40)
--- NOTE | 2020-08-30 07:10 | PDOC.FM ---
- Subjective Subjective: Reports SOB improved compared to yesterday, especially after duoneb treatment. Reports mild pain to L torso at thoracentesis site. Denies headache, vision changes, chest pain, palpitations and edema. Wants to hear oncology's recommendations before deciding if she wants to pursuing treatment of lung cancer. - Objective MAR Reviewed: Yes Vital Signs & Weight: Vital Signs (12 hours) Temp Pulse Resp BP Pulse Ox 08/30/20 03:43 98.1 F 80 14 123/65 92 L 08/29/20 23:39 98.2 F 78 16 119/57 L 93 L 08/29/20 19:40 92 L 08/29/20 19:16 98.3 F 85 16 127/63 88 L Weight Weight 73.482 kg I&O: 08/29/20 08/30/20 08/31/20 06:59 06:59 06:59 Intake Total 1080 1100 Output Total 200 800 Balance 880 300 Result Diagrams: 08/30/20 05:01 08/30/20 05:01 Phys Exam - Physical Examination Constitutional: NAD HEENT: moist MMs, sclera anicteric Neck: full ROM Respiratory: no wheezing, clear to auscultation bilateral Diminished L breath sounds, improved vs. yesterday Cardiovascular: RRR, no significant murmur Gastrointestinal: soft, non-tender, positive bowel sounds Musculoskeletal: no edema Neurological: moves all 4 limbs Psychiatric: normal affect, A&O x 3 Skin: no rash Dx/Plan (1) Pleural effusion Code(s): J90 - PLEURAL EFFUSION, NOT ELSEWHERE CLASSIFIED Status: Acute (2) COPD (chronic obstructive pulmonary disease) Status: Acute (3) Anemia, normocytic normochromic Code(s): D64.9 - ANEMIA, UNSPECIFIED Status: Chronic (4) CAD (coronary artery disease) Code(s): I25.10 - ATHSCL HEART DISEASE OF [place] CORONARY ARTERY W/O ANG PCTRS Status: Chronic Qualifiers: Coronary Disease-Associated Artery/Lesion type: [place] artery [place] vs. transplanted heart: [place] heart Associated angina: without angina Qualified Code(s): I25.10 - Atherosclerotic heart disease of [place] coronary artery without angina pectoris (5) CKD (chronic kidney disease) stage 3, GFR 30-59 ml/min Code(s): N18.3 - CHRONIC KIDNEY DISEASE, STAGE 3 (MODERATE) * DO NOT USE * Status: Chronic (6) Dyslipidemia Code(s): E78.5 - HYPERLIPIDEMIA, UNSPECIFIED Status: Chronic (7) GERD (gastroesophageal reflux disease) Code(s): K21.9 - GASTRO-ESOPHAGEAL REFLUX DISEASE WITHOUT ESOPHAGITIS Status: Chronic (8) Hypertension Code(s): I10 - ESSENTIAL (PRIMARY) HYPERTENSION Status: Chronic Qualifiers: Hypertension type: essential hypertension Qualified Code(s): I10 - Essential (primary) hypertension - Plan Plan: 85 year old female with hx of non small cell lung cancer and COPD presented with SOB and weakness Acute hypoxic respiratory failure due to left sided pleural effusion likely 2/2 non-small cell lung cancer s/p thoracentesis Sat 86% on 6L in ED when laying down, transitioned to HFNC then to 6L again after improvement of O2 sat. CXR: large L pleural effusion. CT Chest: large L pleural effusion, compression atelectasis, worsening mediastinal LAD, R sided upper and lower pulmonary nodules. Underwent thoracentesis in ED with 1 L bloody fluid. Previously admitted from 08/15-08/18 for L pleural exudative effusion with studies + for non-small cell lung cancer. -Admit to stroke inpatient -Exudative effusion present, likely 2/2 to malignancy -Received Cefepime (08/28) and Vanc (08/28) in ED. Will discontinue as elevated procal of 0.42 and WBC of 24 likely due to malignancy -Dr. Dutton, CT surgery, consulted. Plan for PleuX catheter placement this am -Oncology team consulted. Believe cancer is likely adenocarcinoma but cannot make diagnosis without biopsy. F/u further recs -Pallitive consulted for goals of care discussion. Patient now DNR. -PT/OT/CM consulted. Recommended SNF vs rehab Possible TIA 2 episodes of L facial droop and slurred speech at 1000 and 1015 with confusion afterward lasting 15 minutes. Symptoms resolved. Likely vasovagal response due to straining during BM just prior. CT Juwan showed no acute process, chronic small vessel ischemic changes. -Brain MRI to further evaluate Symptomatic normocytic anemia Hgb 7.2, MCV 87.8 in ED. Likely due to anemia of chronic disease and malignancy. Hx of iron deficiency anemia -Hgb improved to 8.3 -> 8.5 s/p 1 unit pRBC -Monitor with am labs ARMANI, resolved on CKD -Monitor with am lab. Improved 1.19 > 1.09 > 0.93 -Encourage PO intake COPD -Sat'ing well on home O2 6L -> 4L. Previously on HFNC in ED after orthopnea -Duonebs Q4H PRN -Continue home meds Hx of colon cancer - CEA 2.33 on previous admission Constipation BM this am after 5 days -Miralax scheduled daily Hx of CAD, s/p stent Underwent drug elluting stent 01/2020. Brillinta was d/c on 08/18 due to bloody pleural fluid and anemia during hospitalization -Continue home meds Anxiety Depression -Continue home meds GERD -Continue home med Hx of aortic stenosis s/p TAVR -Aware PCP: Tarik Code: DNR/DNI DVT ppx: SCDs Dispo: [place] swing bed pending further medical management Addendum - Attending - Attending Attestation Date/Time: 08/30/20 [id number] I personally evaluated the patient and discussed the management with Dr. Steinberg. I agree with the History, Examination, Assessment and Plan documented above with any addition or exceptions noted below. Await CVSx. Attempting to find out if we can do an MRI. CT per onc.
[2020-08-30] MEDS: Mometasone 200 MCG/Formoterol 5 MCG 120 PUFF INHALER INH SCH ×2 (07:50→18:28)
[2020-08-30] MEDS: Carvedilol 3.125 MG TAB PO SCH ×2 (08:13→16:17)
[2020-08-30] MEDS: Ferrous Sulfate 325 MG TAB PO SCH (08:13)
[2020-08-30] MEDS ORDERED: Ondansetron PF 4 MG/2 ML Vial ONE (08:49)
[2020-08-30 09:24] LABS: SARS-CoV-2 PCR by NAA Not Detected (NotDetected)
[2020-08-30] MEDS ORDERED: Ketamine 50 MG/ML (10ML VIAL) ONE (11:05)
[2020-08-30] MEDS ORDERED: Famotidine/PF 20 mg/2ml Vial ONE (11:05)
--- NOTE | 2020-08-30 13:14 | RAD ---
Chest AP view INDICATION: History of Pleurx catheter placement COMPARISON: Prior exam dated August 28, 2020 FINDINGS: Lungs: There is persistent opacification within the left lower lobe. Cardiac silhouette: Mild cardiomegaly and aortic valvular prosthesis is unchanged. Dual-lead pacemak er is unchanged. Pulmonary vasculature: Normal Pleural spaces: Since the prior examination there is been interval development of a small left-sided hydropneumothorax. There is tubing overlying the left hemithorax likely related to external oxygen tubing. Upper abdomen: No abnormality seen. Osseous structures: No acute osseous abnormality. Additional findings: None. IMPRESSION: Interval development of a small left-sided hydropneumothorax related to attempted placement of a left -sided Pleurx catheter. Dr. Araiza was contacted about the findings at 1:10 PM on August 30, 2020. Persistent cardiomegaly. Transcribed Date/Time: 08/30/2020 1:34 PM
[2020-08-30] MEDS: Polyethylene Glycol 3350 17 GM Packet PO SCH (14:03)
--- NOTE | 2020-08-30 14:32 | OP ---
DATE OF PROCEDURE: 08/30/2020 PROCEDURE PERFORMED: Left PleurX catheter placement. PREOPERATIVE DIAGNOSIS: Malignant left pleural effusion. POSTOPERATIVE DIAGNOSIS: Malignant left pleural effusion. ANESTHESIA: 1% lidocaine local anesthesia with intravenous sedation under monitored anesthesia care. INDICATIONS: The patient is an 85-year-old woman with oxygen-dependent COPD, who 3 or 4 years ago had a nondiagnostic percutaneous biopsy of a lung nodule. She did not pursue it any further. Last April, she underwent a catheter-based aortic valve replacement. At which time, she had no evidence of pleural effusion. She recently presented with shortness of breath and had a large pleural effusion tapped that had rare cells suspicious for but not diagnostic of non-small cell lung cancer. In a very brief period of time, the effusion has significantly reaccumulated and she is symptomatic again. It was tapped in the emergency room with relief of her shortness of breath, but in just 2 days time she has become short of breath at rest again. FINDINGS: About a L and half of bloody fluid with sufficient clot and fibrinous debris to almost immediately occluded the PleurX catheter. DESCRIPTION OF PROCEDURE: After informed consent was obtained, the patient was taken to the operating room and placed in supine position on the operating table. She was gently sedated with sedatives included ketamine. Roll was placed underneath her left side and her arms were positioned on the arm boards. Her left chest was prepped and draped in sterile fashion. At about the mid to posterior axillary line at the level of the xiphoid, a skin wheal was raised with lidocaine and then lidocaine was injected into the subcutaneous tissue marched along the superior margin of the underlying rib and bloody pleural fluid was aspirated. Additional lidocaine was infiltrated along the course of that rib to a point chosen for an exit site of the catheter. At the more posterior site, a skin incision was made and a slight subcutaneous tract developed. A large-bore angiocatheter was placed into the pleural space, aspirating bloody fluid. A guidewire was placed through that and by the Seldinger technique, the tract was dilated and a sheath placed. The catheter was introduced through an exit site incision and tunneled over to the posterior incision and then upon removing the dilator and wire from the sheath, the catheter was passed through it and the sheath was stripped away. Extension tubing was used to connect it to the sucker and drainage was very slow and tenuous and immediately became apparent that the fluid was sufficiently viscous to be problematic about draining through the very small bore of the connector and when attempting to clear the tubing, it became apparent that it was clotted. It could be cleared somewhat with injectable saline introduced into the catheter using an angiocatheter to frustrate the valve, but it was quite worrisome for being inadequately cleared and upon reattaching the suction, the drainage was still very, very slow. The incision posteriorly was extended sufficiently to allow for blunt dissection posteriorly and superiorly and entry into the pleural space, one interspace higher. Yankauer sucker was used to aspirate bloody fluid and then a 36-Liberian chest tube was placed to allow for aspiration of the chest using an endotracheal tube sucker through that. The PleurX catheter was retrieved and delivered into the wound through that more superior site, and plugs of fibrinous debris and clot were evacuated from it, ultimately requiring a second introducer sheath . The catheter was reintroduced into the chest, that incision was closed in layers of subcutaneous and subcuticular Vicryl and the PleurX catheter was secured at the exit site with silk suture. Dermabond and dressings were applied. The patient was taken to the recovery area on BiPAP. Job ID: [id number]
[2020-08-30] MEDS: Furosemide 40 MG TAB PO SCH ×2 (15:38→20:30)
[2020-08-30] MEDS: Loratadine 10 MG TAB PO SCH (16:38)
[2020-08-30] MEDS: Venlafaxine HCl XR 75 MG CAP PO SCH (16:38)
[2020-08-30] MEDS: Montelukast Sodium 10 mg Tablet PO SCH (16:38)
[2020-08-30] MEDS: Aspirin 81 mg Enteric Coated Tablet PO SCH (16:38)
[2020-08-30] MEDS: predniSONE 20 MG TAB PO SCH (16:38)
[2020-08-30] MEDS ORDERED: Lactated Ringer's 1,000 ML IV SCH (16:45)
--- NOTE | 2020-08-30 16:48 | RAD ---
Chest AP view INDICATION: History of hypotension on O2 COMPARISON: Prior exam dated August 30, 2020 at 12:37 PM FINDINGS: Lungs: Left pleural parenchymal opacity persists. Cardiac silhouette: Prominent cardiomegaly, aortic valve replacement and pacemaker unchanged. Pulmonary vasculature: Normal Pleural spaces: The left-sided pneumothorax has resolved. There is increase in the left-sided pleura l effusion. Left chest wall subcutaneous emphysema is stable. Upper abdomen: No abnormality seen. Osseous structures: No acute osseous abnormality. Additional findings: None. IMPRESSION: Resolution of left-sided pneumothorax. Increase in the left-sided pleural effusion. Stable left chest wall subcutaneous emphysema.
--- NOTE | 2020-08-30 16:59 | PDOC.BPN ---
- Brief Progress Note Went to check on patient as Dr. Steinberg was notified via [employer] that patient's BP was 90/40 after she got back to her room from recovery. She had a total of about 1.7L out from her chest since the PleurX catheter was placed. Residents to patient's bedside to check on her. Upon arrival to patient's room, BP was 84/36, pulse 95, 93% on 3L and RR of 22. Patient was hard to arouse. Complaining of pain all over. Breath sounds present b/l, heart RRR. 1L bolus was given along with a stat CXR. The surgeon who did her procedure earlier today was notified by the nurse. 10 minutes after bolus was started, BP to 101/60 and patient more alert.
[2020-08-30] MEDS: Atorvastatin Calcium 10 MG TAB PO SCH (20:29)
[2020-08-30] MEDS: HYDROcodone/Acetaminophen 5/325 mg Tablet PO PRN (20:30)
[2020-08-30] MEDS: Promethazine 25 MG TAB PO PRN (21:20)
[2020-08-31] MEDS: Promethazine 25 MG TAB PO PRN ×2 (04:30→11:03)
[2020-08-31 06:13] LABS: Band 5 % (5-11); Hemoglobin 7.6 g/dL (12.0-16.0); Hypochromia SLIGHT = 6-15 cells (100X) (0-5/hpf); MDiff Complete? YES; Mean Corpuscular HGB CONC 30.4 g/dL (32.0-36.0); Mean Corpuscular Hemoglobin 26.8 pg (27.0-31.0); Mean Corpuscular Volume 87.9 fL (78.0-98.0); Mean Platelet Volume 8.2 fL (7.4-10.4); Monocytes 5 % (0-10); Neutrophil 90 % (42-75); Platelet Count 457 thou/uL (130-400); Platelet Morphology Comment Appears Increased; RBC Distribution Width 15.9 % (11.5-14.5); Red Blood Cell (RBC) Count 2.83 mill/uL (4.20-5.40); White Blood Cell (WBC) Count 35.3 thou/uL (4.8-10.8)
[2020-08-31 06:34] LABS: Anion Gap 19 mmol/L (10-20); BUN (Urea Nitrogen) 56 mg/dL (9.8-20.1); Calc. Creatinine Clearance 22 mL/min (70-130); Calcium 8.3 mg/dL (7.8-10.44); Carbon Dioxide 22 mmol/L (23-31); Chloride 100 mmol/L (98-107); Glucose 176 mg/dL (83-110); Potassium 5.6 mmol/L (3.5-5.1); Sodium 135 mmol/L (136-145)
--- NOTE | 2020-08-31 07:07 | PDOC.FM ---
- Subjective Subjective: Reports she does not remember much of yesterday afternoon. Notes nausea overnight not relieved by Zofran or Phenergan. States she feels ready to have a BM. SOB still present, unchanged from yesterday. Has pain at Pleux catheter incision site. Deneis headache, chest pain, and abdominal pain. - Objective MAR Reviewed: Yes Vital Signs & Weight: Vital Signs (12 hours) Temp Pulse Resp BP Pulse Ox 08/31/20 04:20 97.7 F 96 20 121/60 92 L 08/31/20 00:23 97.8 F 99 20 113/57 L 91 L 08/30/20 20:34 97.8 F 81 22 H 101/53 L 89 L Weight Weight 73.482 kg I&O: 08/30/20 08/31/20 09/01/20 06:59 06:59 06:59 Intake Total 1100 1760 Output Total 800 1100 Balance 300 660 Result Diagrams: 08/31/20 04:52 08/31/20 11:53 Phys Exam - Physical Examination Appears uncomfortable while holding vomit bag HEENT: moist MMs, sclera anicteric Neck: full ROM Respiratory: no wheezing Improved breath sounds on left side, Cardiovascular: RRR, no significant murmur Gastrointestinal: soft, non-tender, no distention, positive bowel sounds Reported worsened nausea with palpitation Musculoskeletal: no edema Neurological: moves all 4 limbs Psychiatric: normal affect, A&O x 3 Skin: no rash Dx/Plan (1) Pleural effusion Code(s): J90 - PLEURAL EFFUSION, NOT ELSEWHERE CLASSIFIED Status: Acute (2) COPD (chronic obstructive pulmonary disease) Status: Acute (3) Anemia, normocytic normochromic Code(s): D64.9 - ANEMIA, UNSPECIFIED Status: Chronic (4) CAD (coronary artery disease) Code(s): I25.10 - ATHSCL HEART DISEASE OF [place] CORONARY ARTERY W/O ANG PCTRS Status: Chronic Qualifiers: Coronary Disease-Associated Artery/Lesion type: [place] artery [place] vs. transplanted heart: [place] heart Associated angina: without angina Qualified Code(s): I25.10 - Atherosclerotic heart disease of [place] coronary artery without angina pectoris (5) CKD (chronic kidney disease) stage 3, GFR 30-59 ml/min Code(s): N18.3 - CHRONIC KIDNEY DISEASE, STAGE 3 (MODERATE) * DO NOT USE * Status: Chronic (6) Dyslipidemia Code(s): E78.5 - HYPERLIPIDEMIA, UNSPECIFIED Status: Chronic (7) GERD (gastroesophageal reflux disease) Code(s): K21.9 - GASTRO-ESOPHAGEAL REFLUX DISEASE WITHOUT ESOPHAGITIS Status: Chronic (8) Hypertension Code(s): I10 - ESSENTIAL (PRIMARY) HYPERTENSION Status: Chronic Qualifiers: Hypertension type: essential hypertension Qualified Code(s): I10 - Essential (primary) hypertension - Plan Plan: 85 year old female with hx of non small cell lung cancer and COPD presented with SOB and weakness Acute hypoxic respiratory failure due to left sided pleural effusion likely 2/2 non-small cell lung cancer s/p thoracentesis Sat 86% on 6L in ED when laying down, transitioned to HFNC then to 6L again after improvement of O2 sat. CXR: large L pleural effusion. CT Chest: large L pleural effusion, compression atelectasis, worsening mediastinal LAD, R sided upper and lower pulmonary nodules. Underwent thoracentesis in ED with 1 L bloody fluid. Previously admitted from 08/15-08/18 for L pleural exudative effusion with studies + for non-small cell lung cancer. -Admit to stroke inpatient -Exudative effusion present, likely 2/2 to malignancy -Received Cefepime (08/28) and Vanc (08/28) in ED. Will discontinue as elevated procal of 0.42 and WBC of 24 likely due to malignancy -Dr. Dutton, CT surgery, consulted. PleuX catheter placement 08/30 -Severe nausea not improved with Zofran or Phenergan since procedure. Consider abdominal imaging if continues or worsens -Oncology team consulted. Believe cancer is likely adenocarcinoma but cannot make diagnosis without biopsy. F/u further recs -Pallitive consulted for goals of care discussion. Patient now DNR. -PT/OT/CM consulted. Patient desires [facility] swing bed, approved Possible TIA 2 episodes of L facial droop and slurred speech at 1000 and 1015 with confusion afterward lasting 15 minutes. Symptoms resolved. Likely vasovagal response due to straining during BM just prior. CT [place] showed no acute process, chronic small vessel ischemic changes. -Unable to complete Brain MRI due to unknown type of pacemaker Symptomatic normocytic anemia Hgb 7.2, MCV 87.8 in ED. Likely due to anemia of chronic disease and malignancy. Hx of iron deficiency anemia -Hgb improved to 8.3 -> 8.5 s/p 1 unit pRBC. Downtrended to 7.6 this am -Order 1 unit pRBC today -Monitor with am labs ARMANI on CKD -Monitor with am lab. Improved 1.19 > 1.09 > 0.93. Increased to 2.13 after Pleurx placement and pleural effusion drainage -S/p 1 L on 08/30 afternoon -Encourage PO intake Hyperkalemia K 5.6 this am. Previously 4.2 -> 5.1. -Give duoneb treatment now -EKG to monitor T waves -Repeat K at 1200 to further monitor -Monitor with am labs COPD -Sat'ing well on home O2 6L -> 4L. Previously on HFNC in ED after orthopnea -Duonebs Q4H PRN -Continue home meds Hx of colon cancer - CEA 2.33 on previous admission Constipation BM this am after 5 days -Miralax scheduled daily Hx of CAD, s/p stent Underwent drug elluting stent 01/2020. Brillinta was d/c on 08/18 due to bloody pleural fluid and anemia during hospitalization -Continue home meds Anxiety Depression -Continue home meds GERD -Continue home med Hx of aortic stenosis s/p TAVR -Aware PCP: Tarik Code: DNR/DNI DVT ppx: SCDs Dispo: [facility] swing bed pending further medical management Addendum - Attending - Attending Attestation Date/Time: 08/31/20 5631 I personally evaluated the patient and discussed the management with Dr. Steinberg. I agree with the History, Examination, Assessment and Plan documented above with any addition or exceptions noted below.
[2020-08-31] MEDS: Mometasone 200 MCG/Formoterol 5 MCG 120 PUFF INHALER INH SCH ×2 (07:58→21:08)
--- NOTE | 2020-08-31 08:09 | RAD ---
EXAM: Single view of the chest HISTORY: Pneumothorax after Pleurx catheter COMPARISON: 08/30/2020 FINDINGS: Single view of the chest shows an enlarged but stable cardiomediastinal silhouette. The pa tient is status post aortic valve repair. The pacemaker is unchanged in position. Diffuse increased interstitial lung markings are present. No pneumothorax is visualized. There appears be a small left pleural effusion. Adjacent atelectasis is seen. Degenerative changes are seen in the spine. IMPRESSION: Stable exam
[2020-08-31] MEDS: Carvedilol 3.125 MG TAB PO SCH ×2 (08:50→17:23)
[2020-08-31] MEDS: Montelukast Sodium 10 mg Tablet PO SCH (08:50)
[2020-08-31] MEDS: Ferrous Sulfate 325 MG TAB PO SCH (08:50)
[2020-08-31] MEDS: Furosemide 40 MG TAB PO SCH ×2 (08:51→21:39)
[2020-08-31] MEDS: Polyethylene Glycol 3350 17 GM Packet PO SCH (08:51)
[2020-08-31] MEDS: Aspirin 81 mg Enteric Coated Tablet PO SCH (08:51)
[2020-08-31] MEDS: Ondansetron PF 4 MG/2 ML Vial IVP PRN ×2 (08:51→23:46)
[2020-08-31] MEDS: Venlafaxine HCl XR 75 MG CAP PO SCH (08:51)
[2020-08-31] MEDS: predniSONE 20 MG TAB PO SCH (08:51)
[2020-08-31] MEDS: Loratadine 10 MG TAB PO SCH (08:51)
[2020-08-31] MEDS: HYDROcodone/Acetaminophen 5/325 mg Tablet PO PRN ×2 (11:03→21:42)
[2020-08-31 12:31] LABS: Anion Gap 20 mmol/L (10-20); BUN (Urea Nitrogen) 60 mg/dL (9.8-20.1); Calc. Creatinine Clearance 21 mL/min (70-130); Calcium 8.3 mg/dL (7.8-10.44); Carbon Dioxide 22 mmol/L (23-31); Chloride 99 mmol/L (98-107); Glucose 170 mg/dL (83-110); Potassium 5.5 mmol/L (3.5-5.1); Sodium 135 mmol/L (136-145)
--- NOTE | 2020-08-31 12:44 | EKG ---
Test Reason : Blood Pressure : / mmHG Vent. Rate : 093 BPM Atrial Rate : 093 BPM P-R Int : 166 ms QRS Dur : 118 ms QT Int : 374 ms P-R-T Axes : 048 -17 046 degrees QTc Int : 465 ms Normal sinus rhythm Incomplete right bundle branch block Possible Inferior infarct Abnormal ECG Confirmed by TIM COVARRUBIAS ([id number]) on 08/31/2020 12:44:10 PM Referred By: LAVON Confirmed By:TIM COVARRUBIAS
[2020-08-31] MEDS ORDERED: Calcium Chloride 1 GM/10 ML Abboject SYRINGE IVP SCH (14:45)
--- NOTE | 2020-08-31 15:10 | PDOC.MOPN ---
Interval History: patient received pain medication and is sleeping. Daughter at bedside and updated. - Vital Signs Vital Signs: Vital Signs (12 hours) Temp Pulse Pulse Resp BP BP Pulse Ox 08/31/20 13:49 98.0 F 91 22 H 153/69 H 91 L 08/31/20 13:00 97 18 92 L 08/31/20 11:21 98.2 F 95 20 139/70 94 L 08/31/20 11:02 98.2 F 16 103/59 L 89 L 08/31/20 08:00 91 L 08/31/20 07:57 96 18 91 L 08/31/20 07:47 98.2 F 99 16 131/69 88 L 08/31/20 04:20 97.7 F 96 20 121/60 92 L Weight Weight 162 lb Most Recent Monitor Data Heart Rate from ECG 94 - Physical Exam General: No acute distress Lungs: Other Cardiovascular: Regular rate Abdomen: Normal bowel sounds - Labs Result Diagrams: 08/31/20 04:52 08/31/20 11:53 Lab results: Laboratory Results - last 24 hr 08/31/20 11:53: Sodium 135 L, Potassium 5.5 H, Chloride 99, Carbon Dioxide 22 L, Anion Gap 20, BUN 60 H, Creatinine 2.28 H, Estimated GFR (MDRD) 20, Glucose 170 H, Calcium 8.3 08/31/20 04:52: WBC 35.3 H, RBC 2.83 L, Hgb 7.6 L, Hct 24.9 L, MCV 87.9, MCH 26.8 L, MCHC 30.4 L, RDW 15.9 H, Plt Count 457 H, MPV 8.2, Neutrophils % (Manual) 90 H, Band Neuts % (Manual) 5, Monocytes % (Manual) 5, Hypochromia SLIGHT = 6-15 cells, Plt Morphology Comment Appears Increased H 08/31/20 04:52: Sodium 135 L, Potassium 5.6 H, Chloride 100, Carbon Dioxide 22 L, Anion Gap 19, BUN 56 H, Creatinine 2.13 H, Estimated GFR (MDRD) 22, Glucose 176 H, Calcium 8.3 08/28/20 13:31: Blood Type O NEGATIVE, Antibody Screen NEGATIVE, Crossmatch See Detail Status: lab reviewed by me A/P - Problem (1) Lung cancer Current Visit: Yes Code(s): C34.90 - MALIGNANT NEOPLASM OF UNSP PART OF UNSP BRONCHUS OR LUNG Status: Acute (2) Pleural effusion Current Visit: Yes Code(s): J90 - PLEURAL EFFUSION, NOT ELSEWHERE CLASSIFIED Status: Acute (3) COPD (chronic obstructive pulmonary disease) Current Visit: No Status: Acute - Plan Plan: 1. malignant pleural effusion - pleurx in place with bloody output 2. non-small cell cancer - discussed with daughter, if wish to be aggressive, then need more tissue for further differentiation and and immunohistochemical stains. Patient is somnolent today. She has COPD, advanced age. Would be reasonable to do nothing. She will discuss with her siblings. Patient will go to [facility] upon discharge.
[2020-08-31] MEDS: Atorvastatin Calcium 10 MG TAB PO SCH (21:39)
--- NOTE | 2020-09-01 06:49 | PDOC.FM ---
- Subjective Subjective: Had an extensive conversation with family on 08/31 afternoon and this morning. The patient repeatedly says "I'm miserable. I don't want this." She desires comfort care only and agreed to speak to hospice today. Daughter, Agnes, reported the patient has been repeating similar sentiments to her since hospitalization. Family meeting was completed on 08/31 and all family members are supportive of the patient's decision. They state the patient has previously stated she would like to at home with family members around her. Daughter, Mary Whitmore, will come to hospital today in anticipation of meeting with hospice. Patient reports generalized, continuous pain. Repeats "I'm miserable." No relief with medication. Denies chest pain, SOB, palpitations. - Objective MAR Reviewed: Yes Vital Signs & Weight: Vital Signs (12 hours) Temp Pulse Resp BP Pulse Ox 09/01/20 04:11 94 L 09/01/20 03:57 97.6 F 87 18 150/70 H 90 L 08/31/20 23:45 97.3 F L 86 18 144/66 H 92 L 08/31/20 19:36 97.8 F 74 18 156/71 H 97 Weight Weight 73.482 kg Most Recent Monitor Data Heart Rate from ECG 94 I&O: 08/30/20 08/31/20 09/01/20 06:59 06:59 06:59 Intake Total 1100 1760 1400 Output Total 800 1100 700 Balance 300 660 700 Result Diagrams: 09/01/20 06:04 09/01/20 06:04 Phys Exam - Physical Examination Constitutional: NAD HEENT: moist MMs, sclera anicteric Neck: full ROM Respiratory: no wheezing Decreased breath sounds to left side. No agonal breathing present PleuX catheter in place Cardiovascular: RRR, no significant murmur Gastrointestinal: soft, non-tender, positive bowel sounds Musculoskeletal: no edema Neurological: moves all 4 limbs Psychiatric: A&O x 3 Skin: no rash Dx/Plan (1) Pleural effusion Code(s): J90 - PLEURAL EFFUSION, NOT ELSEWHERE CLASSIFIED Status: Acute (2) COPD (chronic obstructive pulmonary disease) Status: Acute (3) Anemia, normocytic normochromic Code(s): D64.9 - ANEMIA, UNSPECIFIED Status: Chronic (4) CAD (coronary artery disease) Code(s): I25.10 - ATHSCL HEART DISEASE OF [place] CORONARY ARTERY W/O ANG PCTRS Status: Chronic Qualifiers: Coronary Disease-Associated Artery/Lesion type: [place] artery [place] vs. transplanted heart: [place] heart Associated angina: without angina Qualified Code(s): I25.10 - Atherosclerotic heart disease of [place] coronary artery without angina pectoris (5) CKD (chronic kidney disease) stage 3, GFR 30-59 ml/min Code(s): N18.3 - CHRONIC KIDNEY DISEASE, STAGE 3 (MODERATE) * DO NOT USE * Status: Chronic (6) Dyslipidemia Code(s): E78.5 - HYPERLIPIDEMIA, UNSPECIFIED Status: Chronic (7) GERD (gastroesophageal reflux disease) Code(s): K21.9 - GASTRO-ESOPHAGEAL REFLUX DISEASE WITHOUT ESOPHAGITIS Status: Chronic (8) Hypertension Code(s): I10 - ESSENTIAL (PRIMARY) HYPERTENSION Status: Chronic Qualifiers: Hypertension type: essential hypertension Qualified Code(s): I10 - Es sential (primary) hypertension - Plan Plan: 85 year old female with hx of non small cell lung cancer and COPD presented with SOB and weakness Acute hypoxic respiratory failure due to left sided pleural effusion likely 2/2 non-small cell lung cancer s/p thoracentesis Sat 86% on 6L in ED when laying down, transitioned to HFNC then to 6L again after improvement of O2 sat. CXR: large L pleural effusion. CT Chest: large L pleural effusion, compression atelectasis, worsening mediastinal LAD, R sided upper and lower pulmonary nodules. Underwent thoracentesis in ED with 1 L bloody fluid. Previously admitted from 08/15-08/18 for L pleural exudative effusion with studies + for non-small cell lung cancer. -Admit to stroke inpatient -Exudative effusion present, likely 2/2 to malignancy -Received Cefepime (08/28) and Vanc (08/28) in ED. Will discontinue as elevated procal of 0.42 and WBC of 24 likely due to malignancy -Dr. Dutton, CT surgery, consulted. PleuX catheter placement 08/30 -Oncology team consulted. Believe cancer is likely adenocarcinoma but cannot make diagnosis without biopsy. -Pallitive consulted for goals of care discussion. Patient now DNR. -Patient and family agreed on comfort care measures only. Discussing hospice options with CM and palliative today. Possible TIA 2 episodes of L facial droop and slurred speech at 1000 and 1015 with confusion afterward lasting 15 minutes. Symptoms resolved. Likely vasovagal response due to straining during BM just prior. CT [place] showed no acute process, chronic small vessel ischemic changes. -Unable to complete Brain MRI due to unknown type of pacemaker Symptomatic normocytic anemia Hgb 7.2, MCV 87.8 in ED. Likely due to anemia of chronic disease and malignancy. Hx of iron deficiency anemia -Hgb improved to 8.3 -> 8.5 s/p 1 unit pRBC. Downtrended to 7.6, given 1 unit pRBC ARMANI on CKD -Monitor with am lab. Improved 1.19 > 1.09 > 0.93. Increased to 2.13 after Pleurx placement and pleural effusion drainage -S/p 1 L on 08/30 afternoon -Encourage PO intake Hyperkalemia -EKG on 08/31 showed T wave inversions. K trending up -Patient/family do not desire further intervention if K continued to rise. Will d/c labs COPD -Sat'ing well on home O2 6L -> 4L. Previously on HFNC in ED after orthopnea -Duonebs Q4H PRN -Continue home meds Hx of colon cancer - CEA 2.33 on previous admission Constipation BM this am after 5 days -Miralax scheduled daily Hx of CAD, s/p stent Underwent drug elluting stent 01/2020. Brillinta was d/c on 08/18 due to bloody pleural fluid and anemia during hospitalization -Continue home meds Anxiety Depression -Continue home meds GERD -Continue home med Hx of aortic stenosis s/p TAVR -Aware PCP: Tarik Code: DNR/DNI DVT ppx: SCDs Dispo: Comfort care measures only. Will d/c all lab work. Patient and family will meet with CM today to discuss hospice options. Likely d/c home with hospice Addendum - Attending - Attending Attestation Date/Time: 09/01/20 1102 I personally evaluated the patient and discussed the management with the team. I agree with the History, Examination, Assessment and Plan documented above with any addition or exceptions noted below. I feel appropriate for hospice as she looks markedly worse every day despite intervention.
[2020-09-01 07:01] LABS: Hemoglobin 8.7 g/dL (12.0-16.0); Mean Corpuscular HGB CONC 31.9 g/dL (32.0-36.0); Mean Corpuscular Hemoglobin 27.7 pg (27.0-31.0); Mean Corpuscular Volume 86.9 fL (78.0-98.0); Mean Platelet Volume 8.3 fL (7.4-10.4); Platelet Count 432 thou/uL (130-400); RBC Distribution Width 15.9 % (11.5-14.5); Red Blood Cell (RBC) Count 3.13 mill/uL (4.20-5.40); White Blood Cell (WBC) Count 41.7 thou/uL (4.8-10.8)
[2020-09-01 07:04] LABS: Anion Gap 21 mmol/L (10-20); BUN (Urea Nitrogen) 74 mg/dL (9.8-20.1); Calc. Creatinine Clearance 19 mL/min (70-130); Calcium 8.6 mg/dL (7.8-10.44); Carbon Dioxide 19 mmol/L (23-31); Chloride 99 mmol/L (98-107); Glucose 126 mg/dL (83-110); Potassium 5.6 mmol/L (3.5-5.1); Sodium 133 mmol/L (136-145)
[2020-09-01] MEDS: Mometasone 200 MCG/Formoterol 5 MCG 120 PUFF INHALER INH SCH ×2 (07:11→20:08)
[2020-09-01] MEDS: HYDROcodone/Acetaminophen 5/325 mg Tablet PO PRN ×3 (07:14→20:04)
[2020-09-01] MEDS: Ondansetron PF 4 MG/2 ML Vial IVP PRN (07:14)
[2020-09-01] MEDS: Ferrous Sulfate 325 MG TAB PO SCH (08:21)
[2020-09-01] MEDS: Carvedilol 3.125 MG TAB PO SCH ×2 (08:21→17:05)
[2020-09-01] MEDS: predniSONE 20 MG TAB PO SCH (08:21)
[2020-09-01] MEDS: Aspirin 81 mg Enteric Coated Tablet PO SCH (08:21)
[2020-09-01] MEDS: Montelukast Sodium 10 mg Tablet PO SCH (08:22)
[2020-09-01] MEDS: Loratadine 10 MG TAB PO SCH (08:22)
[2020-09-01] MEDS: Polyethylene Glycol 3350 17 GM Packet PO SCH (08:22)
[2020-09-01] MEDS: Furosemide 40 MG TAB PO SCH ×2 (08:22→20:04)
[2020-09-01] MEDS: Venlafaxine HCl XR 75 MG CAP PO SCH (08:22)
[2020-09-01 08:41] LABS: Band 1 % (5-11); Hypersemented Neutrophil SLIGHT; Hypochromia SLIGHT = 6-15 cells (100X) (0-5/hpf); Lymphocytes 3 % (21-51); MDiff Complete? YES; Monocytes 7 % (0-10); Neutrophil 89 % (42-75); Platelet Morphology Comment Appears Increased; Polychromasia SLIGHT = 2-3 cells (100X) (0-2/hpf); Vacuoles SLIGHT
[2020-09-02] MEDS: HYDROcodone/Acetaminophen 5/325 mg Tablet PO PRN ×2 (03:10→11:04)
--- NOTE | 2020-09-02 06:38 | PDOC.FM ---
- Subjective Subjective: Says she is ready to go home. Does not wish to take her daily medications anymore. Reports generalized pain but does not desire pain medication at this time. - Objective MAR Reviewed: Yes Vital Signs & Weight: Vital Signs (12 hours) Temp Pulse Resp BP Pulse Ox 09/01/20 20:08 90 20 94 L 09/01/20 20:00 98.2 F 91 20 146/52 H 93 L Weight Weight 73.482 kg Most Recent Monitor Data Heart Rate from ECG 94 I&O: 08/31/20 09/01/20 09/02/20 06:59 06:59 06:59 Intake Total 1760 1400 870 Output Total 0114 508 3169 Balance 660 700 -130 Result Diagrams: 09/01/20 06:04 09/01/20 06:04 Phys Exam - Physical Examination Constitutional: NAD HEENT: sclera anicteric Neck: full ROM Respiratory: no wheezing Decreased breath sounds on L side. PleuX in place Cardiovascular: RRR Gastrointestinal: soft, non-tender, positive bowel sounds Musculoskeletal: no edema Neurological: moves all 4 limbs Skin: no rash Dx/Plan (1) Pleural effusion Code(s): J90 - PLEURAL EFFUSION, NOT ELSEWHERE CLASSIFIED Status: Acute (2) COPD (chronic obstructive pulmonary disease) Status: Acute (3) Anemia, normocytic normochromic Code(s): D64.9 - ANEMIA, UNSPECIFIED Status: Chronic (4) CAD (coronary artery disease) Code(s): I25.10 - ATHSCL HEART DISEASE OF [place] CORONARY ARTERY W/O ANG PCTRS Status: Chronic Qualifiers: Coronary Disease-Associated Artery/Lesion type: [place] artery [place] vs. t ransplanted heart: [place] heart Associated angina: without angina Qualified Code(s): I25.10 - Atherosclerotic heart disease of [place] coronary artery without angina pectoris (5) CKD (chronic kidney disease) stage 3, GFR 30-59 ml/min Code(s): N18.3 - CHRONIC KIDNEY DISEASE, STAGE 3 (MODERATE) * DO NOT USE * Status: Chronic (6) Dyslipidemia Code(s): E78.5 - HYPERLIPIDEMIA, UNSPECIFIED Status: Chronic (7) GERD (gastroesophageal reflux disease) Code(s): K21.9 - GASTRO-ESOPHAGEAL REFLUX DISEASE WITHOUT ESOPHAGITIS Status: Chronic (8) Hypertension Code(s): I10 - ESSENTIAL (PRIMARY) HYPERTENSION Status: Chronic Qualifiers: Hypertension type: essential hypertension Qualified Code(s): I10 - [place] l (primary) hypertension - Plan Plan: 85 year old female with hx of non small cell lung cancer and COPD presented with SOB and weakness Acute hypoxic respiratory failure due to left sided pleural effusion likely 2/2 non-small cell lung cancer s/p thoracentesis Sat 86% on 6L in ED when laying down, transitioned to HFNC then to 6L again after improvement of O2 sat. CXR: large L pleural effusion. CT Chest: large L pleural effusion, compression atelectasis, worsening mediastinal LAD, R sided upper and lower pulmonary nodules. Underwent thoracentesis in ED with 1 L bloody fluid. Previously admitted from 08/15-08/18 for L pleural exudative effusion with studies + for non-small cell lung cancer. -Admit to stroke inpatient -Exudative effusion present, likely 2/2 to malignancy -Received Cefepime (08/28) and Vanc (08/28) in ED. Will discontinue as elevated procal of 0.42 and WBC of 24 likely due to malignancy -Dr. Dutton, CT surgery, consulted. PleuX catheter placement 08/30 -Oncology team consulted. Believe cancer is likely adenocarcinoma but cannot make diagnosis without biopsy. -Pallitive consulted for goals of care discussion. Patient now DNR. -Patient and family agreed on comfort care measures only. Discussing hospice options with CM and palliative today. Possible TIA 2 episodes of L facial droop and slurred speech at 1000 and 1015 with confusion afterward lasting 15 minutes. Symptoms resolved. Likely vasovagal response due to straining during BM just prior. CT [place] showed no acute process, chronic small vessel ischemic changes. -Unable to complete Brain MRI due to unknown type of pacemaker Symptomatic normocytic anemia Hgb 7.2, MCV 87.8 in ED. Likely due to anemia of chronic disease and malignancy. Hx of iron deficiency anemia -Hgb improved to 8.3 -> 8.5 s/p 1 unit pRBC. Downtrended to 7.6, given 1 unit pRBC ARMANI on CKD -Monitor with am lab. Improved 1.19 > 1.09 > 0.93. Increased to 2.13 after Pleurx placement and pleural effusion drainage -S/p 1 L on 08/30 afternoon -Encourage PO intake Hyperkalemia -EKG on 08/31 showed T wave inversions. K trending up -Patient/family do not desire further intervention if K continued to rise. Will d/c labs COPD -Sat'ing well on home O2 6L -> 4L. Previously on HFNC in ED after orthopnea -Duonebs Q4H PRN -Continue home meds Hx of colon cancer - CEA 2.33 on previous admission Constipation BM this am after 5 days -Miralax scheduled daily Hx of CAD, s/p stent Underwent drug elluting stent 01/2020. Brillinta was d/c on 08/18 due to bloody pleural fluid and anemia during hospitalization -Continue home meds Anxiety Depression -Continue home meds GERD -Continue home med Hx of aortic stenosis s/p TAVR -Aware PCP: Tarik Code: DNR/DNI Dispo: Comfort care measures only. Discharge home with hospice today Addendum - Attending - Attending Attestation Date/Time: 09/02/20 1017 I personally evaluated the patient and discussed the management with Dr. Steinberg. I agree with the History, Examination, Assessment and Plan documented above with any addition or exceptions noted below. Home today with palliative.
[2020-09-02] MEDS: Carvedilol 3.125 MG TAB PO SCH (08:07)
[2020-09-02] MEDS: predniSONE 20 MG TAB PO SCH (08:07)
[2020-09-02] MEDS: Aspirin 81 mg Enteric Coated Tablet PO SCH (08:07)
[2020-09-02] MEDS: Loratadine 10 MG TAB PO SCH (08:07)
[2020-09-02] MEDS: Furosemide 40 MG TAB PO SCH (08:07)
[2020-09-02] MEDS: Venlafaxine HCl XR 75 MG CAP PO SCH (08:08)
[2020-09-02] MEDS: Montelukast Sodium 10 mg Tablet PO SCH (08:08)
[2020-09-02] MEDS: Polyethylene Glycol 3350 17 GM Packet PO SCH (08:08)
[2020-09-02 08:23] VITALS: BP 132/82; TEMP 97.7
== END 2020-09-02 11:07 | disposition hospice, home (50) | DRG 180 ==
LOC: ERS 12:05 → SURG B 14:00
PROVIDERS: ADMIT Emergency Medicine; ATTEND Emergency Medicine
PROC: 0W9B3ZZ Drainage of Left Pleural Cavity, Percutaneous Approach (ICD-10-PCS; principal; 2020-08-28)
PROC: 0B9P30Z Drainage of Left Pleura with Drainage Device, Percutaneous Approach (ICD-10-PCS; 2020-08-30)
DX: C34.90 Malignant neoplasm of unspecified part of unspecified bronchus or lung (principal); J96.01 Acute respiratory failure with hypoxia; I50.33 Acute on chronic diastolic (congestive) heart failure; J91.0 Malignant pleural effusion; N17.9 Acute kidney failure, unspecified; I13.0 Hypertensive heart and chronic kidney disease with heart failure and stage 1 through stage 4 chronic kidney disease, or unspecified chronic kidney disease; J98.11 Atelectasis; Z51.5 Encounter for palliative care; Z66 Do not resuscitate; E87.5 Hyperkalemia; G45.9 Transient cerebral ischemic attack, unspecified; J44.9 Chronic obstructive pulmonary disease, unspecified; I25.10 Atherosclerotic heart disease of native coronary artery without angina pectoris; I48.91 Unspecified atrial fibrillation; N18.30 Chronic kidney disease, stage 3 unspecified; E78.5 Hyperlipidemia, unspecified; K21.9 Gastro-esophageal reflux disease without esophagitis; D63.1 Anemia in chronic kidney disease; K59.00 Constipation, unspecified; F41.9 Anxiety disorder, unspecified; F32.9 Major depressive disorder, single episode, unspecified; Z20.822 Contact with and (suspected) exposure to COVID-19; Z95.0 Presence of cardiac pacemaker; Z95.5 Presence of coronary angioplasty implant and graft; Z90.710 Acquired absence of both cervix and uterus; Z90.49 Acquired absence of other specified parts of digestive tract; Z95.4 Presence of other heart-valve replacement; Z85.038 Personal history of other malignant neoplasm of large intestine; Z79.82 Long term (current) use of aspirin; Z79.899 Other long term (current) drug therapy; Z79.51 Long term (current) use of inhaled steroids; Z87.891 Personal history of nicotine dependence
CPT/HCPCS: 32554; 36415; 36416; 36430; 51701; 70450; 71045; 71275; 74177; 80048; 80053; 81003; 82150; 82945; 83615; 83880; 84145; 84484; 85025; 85610; 85730; 86850; 86900; 86901; 87040; 87635; 93005; 93010; 94640; 94660; 96365; 96375; C1729; C1752; J0692; J2405; J3370; J7512; J7620; P9016; Q0162; Q0169; Q9967; S0028; U0003; U0005